=== PATIENT | male | born 1945 | race Asian ===

== ENCOUNTER 2017-12-16 14:44 | Inpatient (IN) | payer MEDICARE, MEDICAID ==
[~2017-12-16] VITALS: Ht 167.6 cm; Wt 91.2 kg
[2017-12-16] MEDS ORDERED: ASPIR 8181 MG ORAL (14:52)
[2017-12-16] MEDS ORDERED: KEPPRA1000 MG ORAL (14:52)
[2017-12-16] MEDS ORDERED: DULCOLAX10 MG RC (14:52)
[2017-12-16] MEDS ORDERED: COLACE100 MG ORAL (14:52)
[2017-12-16] MEDS ORDERED: BENADRYL25 M3 PO (14:52)
[2017-12-16] MEDS ORDERED: AMIODARONE HCL400 M1 ORAL (14:52)
[2017-12-16] MEDS ORDERED: LYRICA75 M1 ORAL (14:52)
[2017-12-16] MEDS ORDERED: LISINOPRIL5 MG ORAL (14:52)
[2017-12-16] MEDS ORDERED: METOPROLOL TART25 MG ORAL (14:52)
[2017-12-16] MEDS ORDERED: FISH OIL CAP1000 MG ORAL (14:52)
[2017-12-16 15:00] VITALS: BP 136/80
[2017-12-16] MEDS ORDERED: Albuterol ud Inhalation HHN ONE (15:00)
[2017-12-16] MEDS ORDERED: Ipratropium 0.02% Inh Soln 2.5ml UD HHN ONE (15:00)
[2017-12-16] MEDS ORDERED: Acetaminophen 500mg (ES) tab ORAL ONE (15:00)
--- NOTE | 2017-12-16 15:06 | Emergency Room Report ---
History of Present Illness General Chief Complaint: Upper Respiratory Illness Source: Patient Present Illness HPI 72-year-old male with a history of CAD status post CABG as well as CVA with left hemiplegia presents with abnormal chest x-ray, cough with whitish sputum production for the past week and sensation shortness of breath. Patient denies any pain complaints. Denies any fevers. He denies syncope, hemoptysis, n/v, diarrhea, or any other problems. Allergies: Coded Allergies: No Known Allergies (Unverified , 12/16/17) Patient History Past Medical History: see triage record Reviewed Nursing Documentation: PMH: Agreed; PSxH: Agreed Nursing Documentation-PMH Hx Hypertension: Yes - hyperlipidemia Hx Seizures: Yes Review of Systems All Other Systems: negative except mentioned in HPI Physical Exam Vital Signs Date Time Temp Pulse Resp B/P (MAP) Pulse Ox O2 Delivery O2 Flow Rate FiO2 12/16/17 14:41 99.8 68 20 136/80 93 Room Air 99.9 Sp02 EP Interpretation: reviewed, normal General Appearance: no apparent distress, alert, non-toxic Head: normocephalic Eyes: bilateral eye normal inspection, bilateral eye PERRL, bilateral eye EOMI ENT: normal ENT inspection, hearing grossly normal, normal pharynx, no angioedema, normal voice, moist mucus membranes Neck: normal inspection, full range of motion, supple, supple/symm/no masses Respiratory: chest non-tender, normal breath sounds, rhonchi, wheezing, expiration, chest symmetrical, palpation of chest normal Cardiovascular #1: normal peripheral pulses, regular rate, rhythm Cardiovascular #2: 2+ radial (R), 2+ radial (L) Gastrointestinal: normal inspection, non tender, soft, no mass, no guarding, no rebound Rectal: deferred Genitourinary: normal inspection, no CVA tenderness Musculoskeletal: back normal, non-tender, no calf tenderness Neurologic: alert, responsive, 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 III-XII nml as tested, motor strength/tone normal, sensory intact, speech normal, facial droop, motor weakness - Left upper extremity contracted, left-sided weakness and left facial droop Psychiatric: judgement/insight normal, memory normal, mood/affect normal, no suicidal/homicidal ideation Skin: normal color, no rash, warm/dry, normal turgor Lymphatic: no adenopathy Medical Decision Making Diagnostic Impression: Primary Impression: CAP (community acquired pneumonia) ER Course Patient sent for abnormal chest x-ray, signs and symptoms consistent with pneumonia, patient given breathing treatment, Tylenol, blood cultures, broad- spectrum antibiotics, admitted for pneumonia. EKG Diagnostic Results EKG Time: 15:10 EP Interpretation: no st-t changes, no TWI's Rate: normal Rhythm: NSR ST Segments: no acute changes ASA given to the pt in ED: No Rhythm Strip Diag. Results Rhythm Strip Time: 15:05 EP Interpretation: yes Rate: 59 Rhythm: NSR, no PVC's, no ectopy Chest X-Ray Diagnostic Results Chest X-Ray Diagnostic Results : Chest X-Ray Ordered: Yes # of Views/Limited/Complete: 1 View Indication: Other - cough EP Interpretation: Yes Interpretation: no pneumothorax, other - RML consolidation Impression: Other - RML pneumonia Electronically Signed by: Sheila Russo MD Last Vital Signs Date Time Temp Pulse Resp B/P (MAP) Pulse Ox O2 Delivery O2 Flow Rate FiO2 7/2/18 14:41 99.8 68 20 136/80 93 Room Air 99.9 Disposition: ADMITTED INPATIENT Signed Out To: Dr. Dover accepted patient for admission SHEILA RUSSO M.D Dec 16, 2017 15:06
[2017-12-16 16:03] VITALS: BP 133/87
[2017-12-16 16:03] LABS: BASOPHILS % (AUTO) 1.3 % (0.0-2.0); EOSINOPHILS % (AUTO) 1.3 % (0.0-3.0); HEMATOCRIT 47.3 % (42.0-52.0); LYMPHOCYTES % (AUTO) 30.7 % (20.0-45.0); MEAN CORPUSCULAR VOLUME 93 FL (80-99); MONOCYTES % (AUTO) 9.3 % (1.0-10.0); NEUTROPHILS % (AUTO) 57.4 % (45.0-75.0); PLATELET COUNT 188 K/UL (150-450); RED BLOOD COUNT 5.08 M/UL (4.70-6.10); RED CELL DISTRIBUTION WIDTH 11.8 % (11.6-14.8); WHITE BLOOD COUNT 8.1 K/UL (4.8-10.8)
[2017-12-16 16:18] LABS: ANION GAP 11 mmol/L (5-15); BLOOD UREA NITROGEN 18 mg/dL (7-18); CALCIUM 8.5 MG/DL (8.5-10.1); CARBON DIOXIDE 23 MMOL/L (21-32); CHLORIDE 103 MMOL/L (98-107); CREATININE 1.5 MG/DL (0.55-1.30); POTASSIUM 4.5 MMOL/L (3.5-5.1); SODIUM 137 MMOL/L (136-145)
--- NOTE | 2017-12-16 16:26 | Diagnostic Imaging Report ---
Indication: Cough Comparison: None A single view chest radiograph was obtained. Findings: Sternotomy is noted. No definite infiltrate or pulmonary vascular congestion identified. The heart is enlarged. The aorta is mildly enlarged consistent with atherosclerotic vascular disease. The bones are osteopenic. Impression: No acute disease
[2017-12-16 16:29] LABS: APPEARANCE,URINE CLEAR; BILIRUBIN, URINE NEGATIVE (NEGATIVE); GLUCOSE, URINE (UA) NEGATIVE (NEGATIVE); KETONES,URINE NEGATIVE (NEGATIVE); LEUKOCYTE ESTERASE ,URINE 3+ (NEGATIVE); NITRITE,URINE NEGATIVE (NEGATIVE); PH,URINE 5 (4.5-8.0); PROTEIN,URINE 2+ (NEGATIVE); UROBILINOGEN,URINE NORMAL MG/DL (0.0-1.0)
[2017-12-16 16:30] LABS: ALANINE AMINOTRANSFERASE 14 U/L (12-78); ALBUMIN 3.1 G/DL (3.4-5.0); ALBUMIN/GLOBULIN RATIO 0.7 (1.0-2.7); ALKALINE PHOSPHATASE 93 U/L (46-116); ASPARTATE AMINO TRANSFERASE 24 U/L (15-37); BILIRUBIN,TOTAL 0.6 MG/DL (0.2-1.0)
[2017-12-16 16:31] LABS: COLOR,URINE YELLOW
[2017-12-16 18:05] VITALS: BP 137/82
[2017-12-16 19:05] VITALS: BP 104/50
[2017-12-16 20:20] VITALS: BP 112/51
[2017-12-16] MEDS ORDERED: Albuterol/Ipratropium 3ml neb HHN PRN (21:30)
[2017-12-16] MEDS: Piperacillin/Tazobactam 3.375 GM in NS 110 ML IVPB SCH (22:49)
[2017-12-17] VITALS: BP 134/70
[2017-12-17] MEDS: Vancomycin 1500mg IVPB SCH ×2 (02:25→23:28)
[2017-12-17 04:00] VITALS: BP 134/70
[2017-12-17] MEDS: Piperacillin/Tazobactam 3.375 GM in NS 110 ML IVPB SCH ×3 (05:37→20:45)
[2017-12-17 08:00] VITALS: BP 129/62
--- NOTE | 2017-12-17 08:29 | History and Physical Report ---
DATE OF ADMISSION: 12/16/2017 CHIEF COMPLAINT: Sepsis, pneumonia, and UTI. HISTORY OF PRESENT ILLNESS: The patient is a pleasant 72-year-old male. He has a history of hypertension, stroke, paroxysmal atrial fibrillation, and seizure disorder. He was transferred from a long term facility with complaints of fevers and congestion. The patient was recently diagnosed with pneumonia. He has been on oral antibiotic therapy. He continued to have episodes of subjective fevers and chills, shortness of breath, and congestion. He was transferred to the emergency room. He was noted to have an elevated lactic acid level. He was pancultured. IV antibiotics were instituted and the patient is now admitted for further evaluation and care. PAST MEDICAL HISTORY: As above. PAST SURGICAL HISTORY: None. CURRENT MEDICATIONS: Reconciled and reviewed. ALLERGIES: None. FAMILY HISTORY: None. SOCIAL HISTORY: The patient is a prior smoker. No alcohol. No drugs. REVIEW OF SYSTEMS: GENERAL: Positive fevers and chills. No night sweats. HEENT: No headaches or visual changes. CARDIOPULMONARY: No chest pain or shortness of breath. GASTROINTESTINAL: No nausea or vomiting. GENITOURINARY: No urgency or frequency. MUSCULOSKELETAL: No joint pain or swelling. No evidence of seizures. PHYSICAL EXAMINATION: VITAL SIGNS: Temperature 100.8, pulse 63, respirations 20, and blood pressure 112/51. GENERAL: The patient is a well-developed male, in no apparent distress. He is awake and alert. HEENT: His pupils are equal, round and reactive to light. Sclerae anicteric. Oropharynx is clear. NECK: Supple. HEART: Regular rate and rhythm. LUNGS: Scattered rhonchi. ABDOMEN: Soft, nontender, and nondistended. EXTREMITIES: Without clubbing or cyanosis. The patient has hemiparesis noted. LABORATORY DATA: UA showed 15 to 20 wbc's. White count was 8. Lactic acid was 2.8. Creatinine was 1.5. ASSESSMENT: This is a pleasant male, admitted with complaints of sepsis secondary to urinary tract infection and pneumonia. 1. Sepsis. 2. Urinary tract infection. 3. Pneumonia. 4. Stroke. 5. Hypertension. 6. Diabetes. PLAN: 1. IV antibiotics. 2. Follow up cultures. 3. Consider gentle hydration. 4. Respiratory treatments. 5. Continue outpatient cardiac regimen. Tha Dover M.D. DR: SEPIDEH JOB#: [id number] CC:
[2017-12-17] MEDS: Lisinopril 2.5mg tab ORAL SCH ×2 (08:57→18:12)
[2017-12-17] MEDS: Docusate 100mg cap ORAL SCH (08:57)
[2017-12-17] MEDS: Amiodarone 200mg tab ORAL SCH (08:57)
[2017-12-17] MEDS: Aspirin EC 81mg tab ORAL SCH (08:57)
[2017-12-17] MEDS: Lyrica 50mg cap ORAL SCH ×3 (08:58→18:13)
[2017-12-17] MEDS: Metoprolol 25mg tab ORAL SCH ×3 (08:58→20:44)
--- NOTE | 2017-12-17 08:59 | Consultation ---
DATE OF CONSULTATION: 12/17/2017 PULMONARY CONSULTATION CONSULTING PHYSICIAN: Donald Stein M.D. REFERRING PHYSICIAN: Tha Dover M.D. REASON FOR CONSULTATION: Shortness of breath and respiratory insufficiency. HISTORY: This is a 72-year-old male with history of heart disease, and history of CVA with left-sided hemiplegia, presents with chronic and worsening sputum production and also shortness of breath and wheezing. The patient denies any chest trauma. Denies any recent ill contacts. The patient was seen in the emergency room and was noted to have a chest x-ray, which was negative. EKG without any acute changes. The patient, however, felt to possibly have an early right middle lobe infiltrate. The patient is now being admitted for acute bronchospasm, possible early pneumonia and I was called to evaluate and recommend further. The patient was started on antibiotics and started on respiratory therapy. The patient is a fair historian. Difficult to fully assess. The patient's care discussed and reviewed in detail. The patient with questionable history of asthma per review. PAST MEDICAL HISTORY: Notable for CAD, CABG, CVA with left-sided hemiplegia, hyperlipidemia, seizure disorder, and hypertension. MEDICATIONS: Reviewed. ALLERGIES: Reviewed. REVIEW OF SYSTEMS: Somewhat difficult to obtain. However, the patient denies all 10 points as outlined. PHYSICAL EXAMINATION: GENERAL: A well-developed male. Somewhat obese. VITAL SIGNS: Blood pressure 134/70, temperature 99.6, pulse 73, respirations 18, and sats 96% on room air. HEENT: Negative. Oropharynx is moist. NECK: Supple. EXTREMITIES: Grossly intact. NECK: Supple. No jugular venous distention. LUNGS: Scattered wheezes. Occasional rhonchi. Reduced air entry. CARDIAC: Normal S1, S2. Regular rate and rhythm. Soft systolic murmur at the parasternal border. ABDOMEN: Soft, obese, and nontender. EXTREMITIES: No cyanosis or clubbing. NEUROLOGIC: There is focal weakness and some contractures noted overall. SKIN: Noted and reviewed. LABORATORY DATA: Reviewed. White count 8.1, no left shift. Chemistries noted and reviewed. Lactic acid slightly elevated. BUN and creatinine are 18 and 1.5. Albumin is 3.1. Chest x-ray appears to be fairly negative although there is some haziness in the right middle lobe region. IMPRESSION: 1. Possible early pneumonia. 2. Evidence of bronchospasm, mild. 3. Hyperlipidemia. 4. Seizures. 5. Cerebrovascular accident. 6. No clear evidence of aspiration. 7. Coronary artery disease. 8. Coronary artery bypass grafting. RECOMMENDATIONS: Empiric antibiotics. Follow up x-ray and recommend further to assess for developing pneumonia. Follow up exam and monitor clinically for further changes. Continue with antibiotics as is, but consider converting to p.o. antibiotics. X-ray followup appears to be fairly negative in nature. Continue nebulized therapy and monitor for aspiration and monitor oxygen needs. monitor closely for further changes and interventions. Donald Stein M.D. DR: ROXANNA JOB#: [id number] CC: SCAR
[2017-12-17] MEDS: Heparin 5000 units/ml inj SUBQ SCH ×2 (09:01→20:51)
[2017-12-17 12:00] VITALS: BP 118/72
[2017-12-17 16:00] VITALS: BP 121/85
[2017-12-17 20:00] VITALS: BP 119/57
[2017-12-18] VITALS: BP 101/50
--- NOTE | 2017-12-18 00:36 | Cardiology Report ---
APPROVED REPORT EKG Measurement Heart [id number] Suspect arm lead reversal, interpretation assumes no reversal Sinus rhythm with 1st degree AV block Nonspecific intraventricular block Possible Anterolateral infarct, age undetermined Abnormal ECG
[2017-12-18 04:00] VITALS: BP 134/68
[2017-12-18] MEDS: Piperacillin/Tazobactam 3.375 GM in NS 110 ML IVPB SCH ×3 (05:48→22:00)
[2017-12-18 08:00] VITALS: BP 126/65
[2017-12-18] MEDS: Lisinopril 2.5mg tab ORAL SCH ×2 (08:26→17:34)
[2017-12-18] MEDS: Docusate 100mg cap ORAL SCH (08:26)
[2017-12-18] MEDS: Amiodarone 200mg tab ORAL SCH (08:27)
[2017-12-18] MEDS: Lyrica 50mg cap ORAL SCH ×3 (08:28→17:35)
[2017-12-18] MEDS: Aspirin EC 81mg tab ORAL SCH (08:29)
[2017-12-18] MEDS: Metoprolol 25mg tab ORAL SCH ×2 (08:29→20:51)
[2017-12-18] MEDS: Heparin 5000 units/ml inj SUBQ SCH ×2 (08:31→20:53)
--- NOTE | 2017-12-18 10:50 | Pulmonology Progress Note ---
Assessment/Plan Assessment/Plan IMPRESSION: 1. Possible early pneumonia. 2. Evidence of bronchospasm, mild. 3. Hyperlipidemia. 4. Seizures. 5. Cerebrovascular accident. 6. No clear evidence of aspiration. 7. Coronary artery disease. 8. Coronary artery bypass grafting PLAN respiratory care oxygen monitor for change follow up imaging impression, plan, and exam edited and reviewed in detail care discussed with RN Subjective Allergies: Coded Allergies: No Known Allergies (Unverified , 12/16/17) Subjective care noted and reviewed Objective Last 24 Hour Vital Signs Date Time Temp Pulse Resp B/P (MAP) Pulse Ox O2 Delivery O2 Flow Rate FiO2 12/18/17 08:29 72 126/65 12/18/17 08:26 126/65 12/18/17 08:00 99.3 72 20 126/65 94 Room Air 99.3 12/18/17 08:00 65 18 Room Air 12/18/17 08:00 70 12/18/17 04:00 69 12/18/17 04:00 98.8 72 26 134/68 96 Room Air 98.8 12/18/17 00:00 63 12/18/17 00:00 99.2 55 20 101/50 94 Room Air 99.2 12/17/17 20:44 67 119/57 12/17/17 20:29 68 18 Room Air 12/17/17 20:00 98.0 67 22 119/57 94 Room Air 98.0 12/17/17 20:00 65 12/17/17 18:12 121/85 12/17/17 16:00 61 12/17/17 16:00 98.4 74 18 121/85 96 Room Air 98.4 12/17/17 12:00 99.1 69 18 118/72 95 Room Air 99.1 12/17/17 12:00 59 Intake and Output 12/17/17 12/18/17 19:00 07:00 Intake Total 732.5 ml 360.0 ml Balance 732.5 ml 360.0 ml IV Total 82.5 ml 360.0 ml Other 650 ml # Voids 3 3 Objective GENERAL: A well-developed male. Somewhat obese. HEENT: Negative. Oropharynx is moist. NECK: Supple. EXTREMITIES: Grossly intact. NECK: Supple. No jugular venous distention. LUNGS: minimal wheezes. no rhonchi. Reduced air entry. CARDIAC: Normal S1, S2. Regular rate and rhythm. Soft systolic murmur at the parasternal border. ABDOMEN: Soft, obese, and nontender. EXTREMITIES: No cyanosis or clubbing. NEUROLOGIC: There is focal weakness and some contractures noted overall. SKIN: Noted and reviewed. . Microbiology Date/Time Source Procedure Growth Status 12/16/17 15:40 Blood Blood Culture - Preliminary NO GROWTH AFTER 24 HOURS Resulted 12/16/17 15:20 Blood Blood Culture - Preliminary NO GROWTH AFTER 24 HOURS Resulted 12/16/17 16:00 Nasal Nares MRSA Culture - Final NO METHICILLIN RESISTANT STAPH AUREUS... Complete 12/16/17 16:00 Urine,Clean Catch Urine Culture - Preliminary Mixed Gram Positive Organism Resulted 12/16/17 16:00 Rectum VRE Culture - Final NO VANCOMYCIN RESISTANT ENTEROCOCCUS ... Complete Current Medications Medications (Trade) Dose Ordered Sig/Dick Route PRN Reason Start Time Stop Time Status Last Admin Dose Admin Acetaminophen (Tylenol) 650 mg Q4H PRN ORAL Mild Pain/Temp > 100.5 12/16/17 23:15 01/15/18 23:14 12/17/17 08:58 Albuterol/ Ipratropium (Albuterol/ Ipratropium) 3 ml Q4H PRN HHN Shortness of Breath 12/16/17 21:30 12/21/17 21:29 Amiodarone HCl (Cordarone) 200 mg DAILY ORAL 12/17/17 09:00 01/16/18 08:59 12/18/17 08:27 Aspirin (Ecotrin) 81 mg DAILY ORAL 12/17/17 09:00 01/16/18 08:59 12/18/17 08:29 Atorvastatin Calcium (Lipitor) 10 mg BEDTIME ORAL 12/17/17 21:00 01/16/18 20:59 12/17/17 20:44 Bisacodyl (Dulcolax) 10 mg Q24HRS PRN RECTAL Constipation 12/16/17 23:15 01/15/18 21:59 Diphenhydramine HCl (Benadryl) 25 mg Q24HRS PRN ORAL itching 12/16/17 23:15 01/15/18 21:59 Docusate Sodium (Colace) 100 mg DAILY ORAL 12/17/17 09:00 01/16/18 08:59 12/18/17 08:26 Fish Oil (Fish Oil) 1,000 mg DAILY ORAL 12/17/17 09:00 01/16/18 08:59 12/18/17 08:27 Heparin Sodium (Porcine) (Heparin 5000 units/ml) 5,000 units EVERY 12 HOURS SUBQ 12/17/17 09:00 01/16/18 08:59 12/18/17 08:31 Levetiracetam (Keppra) 1,000 mg BID ORAL 12/17/17 09:00 01/16/18 08:59 12/18/17 08:27 Lisinopril (Zestril) 2.5 mg BID ORAL 12/17/17 09:00 01/16/18 08:59 12/18/17 08:26 Metoprolol Tartrate (Lopressor) 25 mg EVERY 12 HOURS ORAL 12/17/17 09:00 01/16/18 08:59 12/18/17 08:29 Piperacillin Sod/ Tazobactam Sod 3.375 gm/Sodium Chloride 110 ml @ 27.5 mls/hr EVERY 8 HOURS IVPB 12/16/17 22:30 12/21/17 22:29 12/18/17 05:48 Pregabalin (Lyrica) 50 mg THREE TIMES A DAY ORAL 12/17/17 09:00 01/16/18 08:59 12/18/17 08:28 Vancomycin HCl (Vanco rx to dose) 1 ea DAILY PRN MISC Per rx protocol 12/16/17 21:30 01/15/18 21:29 Vancomycin HCl/ Dextrose 250 ml @ 125 mls/hr Q24H IVPB 12/16/17 23:00 12/21/17 22:59 12/17/17 23:28 Donald Stein MD Dec 18, 2017 10:49
--- NOTE | 2017-12-18 11:36 | General Progress Note ---
Assessment/Plan Problem List: (1) UTI (urinary tract infection) ICD Codes: N39.0 - Urinary tract infection, site not specified SNOMED: 61641425 (2) Sepsis ICD Codes: A41.9 - Sepsis, unspecified organism SNOMED: 24247073 (3) Toxic metabolic encephalopathy ICD Codes: G92 - Toxic encephalopathy SNOMED: 408492734 (4) CAP (community acquired pneumonia) ICD Codes: J18.9 - Pneumonia, unspecified organism SNOMED: 428610804 Status: stable, progressing Assessment/Plan resp care iv abx follow up cultures swallow eval sz rx antiplt rx Subjective ROS Limited/Unobtainable: No Constitutional: Reports: malaise, weakness HEENT: Reports: no symptoms Cardiovascular: Reports: no symptoms Respiratory: Reports: cough, shortness of breath Gastrointestinal/Abdominal: Reports: no symptoms Genitourinary: Reports: no symptoms Neurologic/Psychiatric: Reports: pre-existing deficit, seizure Endocrine: Reports: no symptoms Hematologic/Lymphatic: Reports: no symptoms Allergies: Coded Allergies: No Known Allergies (Unverified , 12/16/17) All Systems: reviewed and negative except above Subjective no events. w/o complaints. mild cough and congestion. cxr negative- +infiltrate on cxr done at the snf. Objective Last 24 Hour Vital Signs Date Time Temp Pulse Resp B/P (MAP) Pulse Ox O2 Delivery O2 Flow Rate FiO2 12/18/17 08:29 72 126/65 12/18/17 08:26 126/65 12/18/17 08:00 99.3 72 20 126/65 94 Room Air 99.3 12/18/17 08:00 65 18 Room Air 12/18/17 08:00 70 12/18/17 04:00 69 12/18/17 04:00 98.8 72 26 134/68 96 Room Air 98.8 12/18/17 00:00 63 12/18/17 00:00 99.2 55 20 101/50 94 Room Air 99.2 12/17/17 20:44 67 119/57 12/17/17 20:29 68 18 Room Air 12/17/17 20:00 98.0 67 22 119/57 94 Room Air 98.0 12/17/17 20:00 65 12/17/17 18:12 121/85 7/3/18 16:00 61 12/17/17 16:00 98.4 74 18 121/85 96 Room Air 98.4 12/17/17 12:00 99.1 69 18 118/72 95 Room Air 99.1 12/17/17 12:00 59 Intake and Output 12/17/17 12/18/17 19:00 07:00 Intake Total 732.5 ml 360.0 ml Balance 732.5 ml 360.0 ml IV Total 82.5 ml 360.0 ml Other 650 ml # Voids 3 3 Height (Feet): 5 Height (Inches): 6.00 Weight (Pounds): 201 General Appearance: WD/WN, alert, confused Neck: supple Cardiovascular: normal rate, regular rhythm Respiratory/Chest: chest wall non-tender, no respiratory distress, no accessory muscle use, rhonchi - bilaterally Abdomen: normal bowel sounds, non tender, soft, no organomegaly, no mass Edema: no edema noted Arm (L), no edema noted Arm (R), no edema noted Leg (L), no edema noted Leg (R), no edema noted Pedal (L), no edema noted Pedal (R), no edema noted Generalized Neurologic: motor weakness Tha Dover MD Dec 18, 2017 11:36
[2017-12-18 12:00] VITALS: BP 126/64
[2017-12-18 16:00] VITALS: BP 124/60
--- NOTE | 2017-12-18 16:30 | Consultation ---
DATE OF CONSULTATION: 12/18/2017 INFECTIOUS DISEASES CONSULTATION CONSULTING PHYSICIAN: Hayde Rosen M.D. REFERRING PHYSICIAN: Tha Dover M.D. REASON FOR CONSULTATION: Urinary tract infection and pneumonia. HISTORY OF PRESENT ILLNESS: This is a 72-year-old gentleman with history of hypertension, stroke, atrial fibrillation, seizure disorder who was transferred from a intermediate facility with fever, cough, and congestion. He was found to have a pneumonia and an Infectious Diseases consultation has been obtained for antibiotics. PAST MEDICAL HISTORY: 1. History of hypertension. 2. Stroke. 3. Atrial fibrillation. 4. Seizure disorder. MEDICATIONS: As an inpatient, the patient is on atorvastatin, amiodarone, aspirin, Colace, fish oil, Keppra, lisinopril, metoprolol, pregabalin, subcutaneous heparin, bisacodyl, Benadryl, Tylenol, IV vancomycin, Zosyn, albuterol ipratropium. ALLERGIES: No known drug allergies. SOCIAL HISTORY: He was a smoker before. He does not smoke anymore. He used to drink alcohol before. He does not drink anymore. No history of drug use. FAMILY HISTORY: Noncontributory. REVIEW OF SYSTEMS: RESPIRATORY: He had fever and chills. He has cough. No shortness of breath or chest pain. CARDIAC: No chest pain. No palpitations. No dizziness. No syncope. GASTROINTESTINAL: No nausea. No vomiting. No abdominal pain or diarrhea. PHYSICAL EXAMINATION: VITAL SIGNS: Temperature of 99.3, T-max of 100.8, pulse of 72, respiratory rate of 18, blood pressure 126/65, O2 saturation 94% HEENT: Pupils equally reactive to light and accommodation. Mouth appears clean without thrush. NECK: Supple. No adenopathy. No JVD. CARDIOVASCULAR: Regular rate and rhythm. No murmurs. LUNGS: Wheezing noted. ABDOMEN: Soft and nontender. No organomegaly. EXTREMITIES: No cyanosis, no clubbing, no edema. LABORATORY AND DIAGNOSTIC DATA: White count 8.1, hemoglobin 16, hematocrit 47.3, MCV 93, platelet count of 188, neutrophils of 57%. Sodium 137, potassium 4.5, chloride 103, bicarb 23, BUN 18, creatinine 1.5, glucose 165, calcium 8.5. Total bilirubin 0.6, AST 24, ALT 14, and alkaline phosphatase 93. Beta natriuretic peptide 2725. Total protein 7.4 and albumin 3.1. UA showing 15 to 20 white cells. Urine culture showing mixed gram-positive organism. Rectal swab was negative for VRE. Nasal swab was negative for MRSA. Blood cultures are negative. Chest x-ray is showing no acute disease. ASSESSMENT: This is a 72-year-old gentleman with history of hypertension, stroke, atrial fibrillation who comes in with. 1. Urinary tract infection. 2. Seizure disorder. 3. Hypertension. PLAN: 1. Continue vancomycin and Zosyn for now. 2. We will follow up cultures and adjust antibiotics accordingly. I would like to thank, Dr. Dover, for this consultation. Hayde Rosen M.D. DR: Deborah JOB#: [id number] CC: Tha Dover M.D.
[2017-12-18 20:00] VITALS: BP 104/55
[2017-12-18] MEDS: Vancomycin 1500mg IVPB SCH (23:00)
[2017-12-19] VITALS: BP 99/45
[2017-12-19 04:00] VITALS: BP 108/54
[2017-12-19] MEDS: Piperacillin/Tazobactam 3.375 GM in NS 110 ML IVPB SCH ×3 (06:00→22:06)
[2017-12-19 06:23] LABS: EOSINOPHILS % (AUTO) 9.8 % (0.0-3.0); HEMATOCRIT 42.7 % (42.0-52.0); HEMOGLOBIN 14.6 G/DL (14.2-18.0); LYMPHOCYTES % (AUTO) 28.6 % (20.0-45.0); MEAN CORPUSCULAR VOLUME 94 FL (80-99); MONOCYTES % (AUTO) 8.3 % (1.0-10.0); NEUTROPHILS % (AUTO) 52.4 % (45.0-75.0); PLATELET COUNT 170 K/UL (150-450); RED BLOOD COUNT 4.55 M/UL (4.70-6.10); WHITE BLOOD COUNT 6.5 K/UL (4.8-10.8)
[2017-12-19 06:56] LABS: ALANINE AMINOTRANSFERASE 13 U/L (12-78); ALBUMIN 2.7 G/DL (3.4-5.0); ALBUMIN/GLOBULIN RATIO 0.7 (1.0-2.7); ALKALINE PHOSPHATASE 63 U/L (46-116); ANION GAP 6 mmol/L (5-15); ASPARTATE AMINO TRANSFERASE 16 U/L (15-37); BILIRUBIN,TOTAL 0.8 MG/DL (0.2-1.0); BLOOD UREA NITROGEN 21 mg/dL (7-18); CALCIUM 8.1 MG/DL (8.5-10.1); CARBON DIOXIDE 28 MMOL/L (21-32); CHLORIDE 108 MMOL/L (98-107); CREATININE 1.8 MG/DL (0.55-1.30); POTASSIUM 4.6 MMOL/L (3.5-5.1); SODIUM 142 MMOL/L (136-145)
[2017-12-19 08:00] VITALS: BP 143/73
--- NOTE | 2017-12-19 08:20 | Pulmonology Progress Note ---
Assessment/Plan Assessment/Plan IMPRESSION: 1. Possible early pneumonia. 2. Evidence of bronchospasm, mild. 3. Hyperlipidemia. 4. Seizures. 5. Cerebrovascular accident. 6. No clear evidence of aspiration. 7. Coronary artery disease. 8. Coronary artery bypass grafting PLAN respiratory care as is oxygen noted monitor for change follow up imaging for change impression, plan, and exam edited and reviewed in detail care discussed with RN Subjective Allergies: Coded Allergies: No Known Allergies (Unverified , 12/16/17) Subjective care noted and reviewed more alert Objective Last 24 Hour Vital Signs Date Time Temp Pulse Resp B/P (MAP) Pulse Ox O2 Delivery O2 Flow Rate FiO2 12/19/17 04:12 56 12/19/17 04:00 98.2 56 19 108/54 95 Room Air 98.2 12/19/17 00:00 97.7 50 20 99/45 95 Room Air 97.7 12/18/17 20:51 61 104/55 12/18/17 20:00 62 18 Room Air 21 12/18/17 20:00 97.7 61 18 104/55 95 Room Air 97.7 12/18/17 20:00 58 12/18/17 18:34 98.2 12/18/17 17:35 100.5 12/18/17 17:34 126/64 12/18/17 16:00 99.1 58 20 124/60 95 Room Air 99.1 12/18/17 16:00 58 12/18/17 12:00 98.6 60 20 126/64 96 Room Air 98.6 12/18/17 12:00 70 12/18/17 08:29 72 126/65 12/18/17 08:26 126/65 Intake and Output 12/18/17 12/19/17 19:00 07:00 Intake Total 840.0 ml 387.5 ml Output Total 650 ml 300 ml Balance 190.0 ml 87.5 ml Intake Oral 730 ml IV Total 110.0 ml 387.5 ml Output Urine Total 650 ml 300 ml # Voids 1 # Bowel Movements 3 1 Objective GENERAL: A well-developed male. Somewhat obese. HEENT: Negative. Oropharynx is moist. NECK: Supple. EXTREMITIES: Grossly intact. NECK: Supple. No jugular venous distention. LUNGS: no wheezes. no rhonchi. Reduced air entry. CARDIAC: Normal S1, S2. Regular rate and rhythm. Soft systolic murmur at the parasternal border. ABDOMEN: Soft, obese, and nontender. EXTREMITIES: No cyanosis or clubbing. NEUROLOGIC: There is focal weakness and some contractures noted overall. SKIN: Noted and reviewed. . Microbiology Date/Time Source Procedure Growth Status 12/16/17 15:40 Blood Blood Culture - Preliminary NO GROWTH AFTER 48 HOURS Resulted 12/16/17 15:20 Blood Blood Culture - Preliminary NO GROWTH AFTER 48 HOURS Resulted 12/16/17 16:00 Nasal Nares MRSA Culture - Final NO METHICILLIN RESISTANT STAPH AUREUS... Complete 12/16/17 16:00 Urine,Clean Catch Urine Culture - Preliminary Mixed Gram Positive Organism Resulted 12/16/17 16:00 Rectum VRE Culture - Final NO VANCOMYCIN RESISTANT ENTEROCOCCUS ... Complete Laboratory Tests 12/18/17 21:50: Vancomycin Level Trough 13.1H 12/19/17 05:45: White Blood Count 6.5, Red Blood Count 4.55L, Hemoglobin 14.6, Hematocrit 42.7, Mean Corpuscular Volume 94, Mean Corpuscular Hemoglobin 32.1H, Mean Corpuscular Hemoglobin Concent 34.1, Red Cell Distribution Width 12.0, Platelet Count 170, Mean Platelet Volume 6.3L, Neutrophils (%) (Auto) 52.4, Lymphocytes (%) (Auto) 28.6, Monocytes (%) (Auto) 8.3, Eosinophils (%) (Auto) 9.8H, Basophils (%) (Auto ) 1.0, Sodium Level 142, Potassium Level 4.6, Chloride Level 108H, Carbon Dioxide Level 28, Anion Gap 6, Blood Urea Nitrogen 21H, Creatinine 1.8H, Estimat Glomerular Filtration Rate , Glucose Level 101, Calcium Level 8.1L, Magnesium Level 2.5H, Total Bilirubin 0.8, Aspartate Amino Transf (AST/SGOT) 16 , Alanine Aminotransferase (ALT/SGPT) 13, Alkaline Phosphatase 63, Pro-B-Type Natriuretic Peptide 1139H, Total Protein 6.6, Albumin 2.7L, Globulin 3.9, Albumin/Globulin Ratio 0.7L Current Medications Medications (Trade) Dose Ordered Sig/Dick Route PRN Reason Start Time Stop Time Status Last Admin Dose Admin Acetaminophen (Tylenol) 650 mg Q4H PRN ORAL Mild Pain/Temp > 100.5 12/16/17 23:15 8/1/18 23:14 12/18/17 17:35 Albuterol/ Ipratropium (Albuterol/ Ipratropium) 3 ml Q4H PRN HHN Shortness of Breath 12/16/17 21:30 12/21/17 21:29 Amiodarone HCl (Cordarone) 200 mg DAILY ORAL 12/17/17 09:00 01/16/18 08:59 12/18/17 08:27 Aspirin (Ecotrin) 81 mg DAILY ORAL 12/17/17 09:00 01/16/18 08:59 12/18/17 08:29 Atorvastatin Calcium (Lipitor) 10 mg BEDTIME ORAL 12/17/17 21:00 01/16/18 20:59 12/18/17 20:52 Bisacodyl (Dulcolax) 10 mg Q24HRS PRN RECTAL Constipation 12/16/17 23:15 01/15/18 21:59 Diphenhydramine HCl (Benadryl) 25 mg Q24HRS PRN ORAL itching 12/16/17 23:15 01/15/18 21:59 Docusate Sodium (Colace) 100 mg DAILY ORAL 12/17/17 09:00 01/16/18 08:59 12/18/17 08:26 Fish Oil (Fish Oil) 1,000 mg DAILY ORAL 12/17/17 09:00 01/16/18 08:59 12/18/17 08:27 Heparin Sodium (Porcine) (Heparin 5000 units/ml) 5,000 units EVERY 12 HOURS SUBQ 12/17/17 09:00 01/16/18 08:59 12/18/17 20:53 Levetiracetam (Keppra) 1,000 mg BID ORAL 12/17/17 09:00 01/16/18 08:59 12/18/17 17:34 Lisinopril (Zestril) 2.5 mg BID ORAL 12/17/17 09:00 01/16/18 08:59 12/18/17 17:34 Metoprolol Tartrate (Lopressor) 25 mg EVERY 12 HOURS ORAL 12/17/17 09:00 01/16/18 08:59 12/18/17 08:29 Piperacillin Sod/ Tazobactam Sod 3.375 gm/Sodium Chloride 110 ml @ 27.5 mls/hr EVERY 8 HOURS IVPB 12/16/17 22:30 12/21/17 22:29 12/19/17 06:00 Pregabalin (Lyrica) 50 mg THREE TIMES A DAY ORAL 12/17/17 09:00 01/16/18 08:59 12/18/17 17:35 Vancomycin HCl (Vanco rx to dose) 1 ea DAILY PRN MISC Per rx protocol 12/16/17 21:30 01/15/18 21:29 Vancomycin HCl/ Dextrose 250 ml @ 125 mls/hr Q24H IVPB 12/16/17 23:00 12/21/17 22:59 12/18/17 23:00 Donald Stein MD Dec 19, 2017 08:20
[2017-12-19] MEDS: Aspirin EC 81mg tab ORAL SCH (08:39)
[2017-12-19] MEDS: Amiodarone 200mg tab ORAL SCH (08:39)
[2017-12-19] MEDS: Docusate 100mg cap ORAL SCH (08:39)
[2017-12-19] MEDS: Lisinopril 2.5mg tab ORAL SCH (08:40)
[2017-12-19] MEDS: Metoprolol 25mg tab ORAL SCH ×2 (08:41→21:10)
[2017-12-19] MEDS: Lyrica 50mg cap ORAL SCH ×3 (08:41→18:54)
[2017-12-19] MEDS: Heparin 5000 units/ml inj SUBQ SCH ×2 (08:46→21:11)
--- NOTE | 2017-12-19 09:12 | General Progress Note ---
Assessment/Plan Problem List: (1) UTI (urinary tract infection) ICD Codes: N39.0 - Urinary tract infection, site not specified SNOMED: 57801272 (2) Sepsis ICD Codes: A41.9 - Sepsis, unspecified organism SNOMED: 63452982 (3) Toxic metabolic encephalopathy ICD Codes: G92 - Toxic encephalopathy SNOMED: 105873854 (4) CAP (community acquired pneumonia) ICD Codes: J18.9 - Pneumonia, unspecified organism SNOMED: 024428298 Status: stable Assessment/Plan resp care iv abx follow up cultures dc acei repeat renal fxn sz rx antiplt rx Subjective ROS Limited/Unobtainable: No Constitutional: Reports: malaise, weakness HEENT: Reports: no symptoms Cardiovascular: Reports: no symptoms Respiratory: Reports: no symptoms Gastrointestinal/Abdominal: Reports: no symptoms Genitourinary: Reports: no symptoms Neurologic/Psychiatric: Reports: pre-existing deficit Endocrine: Reports: no symptoms Hematologic/Lymphatic: Reports: anemia Allergies: Coded Allergies: No Known Allergies (Unverified , 12/16/17) All Systems: reviewed and negative except above Subjective no events. w/o complaints. mild cough and congestion. no cp/sob. renal fxn worse ? Objective Last 24 Hour Vital Signs Date Time Temp Pulse Resp B/P (MAP) Pulse Ox O2 Delivery O2 Flow Rate FiO2 12/19/17 08:41 58 143/73 12/19/17 08:40 143/73 12/19/17 04:12 56 12/19/17 04:00 98.2 56 19 108/54 95 Room Air 98.2 12/19/17 00:00 97.7 50 20 99/45 95 Room Air 97.7 12/18/17 20:51 61 104/55 12/18/17 20:00 62 18 Room Air 21 12/18/17 20:00 97.7 61 18 104/55 95 Room Air 97.7 12/18/17 20:00 58 12/18/17 18:34 98.2 12/18/17 17:35 100.5 12/18/17 17:34 126/64 12/18/17 16:00 99.1 58 20 124/60 95 Room Air 99.1 12/18/17 16:00 58 12/18/17 12:00 98.6 60 20 126/64 96 Room Air 98.6 12/18/17 12:00 70 Intake and Output 12/18/17 12/19/17 19:00 07:00 Intake Total 840.0 ml 387.5 ml Output Total 650 ml 300 ml Balance 190.0 ml 87.5 ml Intake Oral 730 ml IV Total 110.0 ml 387.5 ml Output Urine Total 650 ml 300 ml # Voids 1 # Bowel Movements 3 1 Laboratory Tests 12/18/17 21:50: Vancomycin Level Trough 13.1H 12/19/17 05:45: White Blood Count 6.5, Red Blood Count 4.55L, Hemoglobin 14.6, Hematocrit 42.7, Mean Corpuscular Volume 94, Mean Corpuscular Hemoglobin 32.1H, Mean Corpuscular Hemoglobin Concent 34.1, Red Cell Distribution Width 12.0, Platelet Count 170, Mean Platelet Volume 6.3L, Neutrophils (%) (Auto) 52.4, Lymphocytes (%) (Auto) 28.6, Monocytes (%) (Auto) 8.3, Eosinophils (%) (Auto) 9.8H, Basophils (%) (Auto ) 1.0, Sodium Level 142, Potassium Level 4.6, Chloride Level 108H, Carbon Dioxide Level 28, Anion Gap 6, Blood Urea Nitrogen 21H, Creatinine 1.8H, Estimat Glomerular Filtration Rate , Glucose Level 101, Calcium Level 8.1L, Magnesium Level 2.5H, Total Bilirubin 0.8, Aspartate Amino Transf (AST/SGOT) 16 , Alanine Aminotransferase (ALT/SGPT) 13, Alkaline Phosphatase 63, Pro-B-Type Natriuretic Peptide 1139H, Total Protein 6.6, Albumin 2.7L, Globulin 3.9, Albumin/Globulin Ratio 0.7L Height (Feet): 5 Height (Inches): 6.00 Weight (Pounds): 201 General Appearance: WD/WN, alert Neck: supple Cardiovascular: regular rhythm Respiratory/Chest: lungs clear, normal breath sounds Abdomen: normal bowel sounds, non tender, soft, no organomegaly Edema: no edema noted Arm (L), no edema noted Arm (R), no edema noted Leg (L), no edema noted Leg (R), no edema noted Pedal (L), no edema noted Pedal (R), no edema noted Generalized Neurologic: motor weakness Tha Dover MD Dec 19, 2017 09:12
--- NOTE | 2017-12-19 10:52 | Infectious Diseases Prog Note ---
Assessment/Plan Assessment/Plan A; Sepsis UTI Bronchospasm Acute renal failure CAD HPN Seizure disorder P; Continue Zosyn Discontinue Vancomycin Subjective ROS Limited/Unobtainable: No Constitutional: Reports: no symptoms Respiratory: Reports: no symptoms Cardiovascular: Reports: no symptoms Gastrointestinal/Abdominal: Reports: no symptoms Genitourinary: Reports: no symptoms Neurologic: Reports: weakness, other - in left side of brittany, old stroke Allergies: Coded Allergies: No Known Allergies (Unverified , 12/16/17) Objective Vital Signs Last 24 Hour Vital Signs Date Time Temp Pulse Resp B/P (MAP) Pulse Ox O2 Delivery O2 Flow Rate FiO2 12/19/17 09:22 64 20 Room Air 21 12/19/17 08:41 58 143/73 12/19/17 08:40 143/73 12/19/17 08:00 97.0 58 20 143/73 96 Room Air 97.0 12/19/17 07:34 64 12/19/17 04:12 56 12/19/17 04:00 98.2 56 19 108/54 95 Room Air 98.2 12/19/17 00:00 97.7 50 20 99/45 95 Room Air 97.7 12/18/17 20:51 61 104/55 12/18/17 20:00 62 18 Room Air 21 12/18/17 20:00 97.7 61 18 104/55 95 Room Air 97.7 12/18/17 20:00 58 12/18/17 18:34 98.2 12/18/17 17:35 100.5 12/18/17 17:34 126/64 12/18/17 16:00 99.1 58 20 124/60 95 Room Air 99.1 12/18/17 16:00 58 12/18/17 12:00 98.6 60 20 126/64 96 Room Air 98.6 12/18/17 12:00 70 Height (Feet): 5 Height (Inches): 6.00 Weight (Pounds): 201 General Appearance: no acute distress Respiratory/Chest: expiratory wheezing Cardiovascular: normal rate, other - scar of thoracotomy Abdomen: soft, non tender Extremities: no edema Neurologic/Psychiatric: alert, oriented x 3, responsive, other - left side weakness Microbiology Date/Time Source Procedure Growth Status 12/16/17 15:40 Blood Blood Culture - Preliminary NO GROWTH AFTER 48 HOURS Resulted 7/2/18 15:20 Blood Blood Culture - Preliminary NO GROWTH AFTER 48 HOURS Resulted 12/16/17 16:00 Nasal Nares MRSA Culture - Final NO METHICILLIN RESISTANT STAPH AUREUS... Complete 12/16/17 16:00 Urine,Clean Catch Urine Culture - Preliminary Mixed Gram Positive Organism Resulted 12/16/17 16:00 Rectum VRE Culture - Final NO VANCOMYCIN RESISTANT ENTEROCOCCUS ... Complete Laboratory Tests Test 12/18/17 21:50 12/19/17 05:45 Vancomycin Level Trough 13.1 ug/mL (5.0-12.0) H White Blood Count 6.5 K/UL (4.8-10.8) Red Blood Count 4.55 M/UL (4.70-6.10) L Hemoglobin 14.6 G/DL (14.2-18.0) Hematocrit 42.7 % (42.0-52.0) Mean Corpuscular Volume 94 FL (80-99) Mean Corpuscular Hemoglobin 32.1 PG (27.0-31.0) H Mean Corpuscular Hemoglobin Concent 34.1 G/DL (32.0-36.0) Red Cell Distribution Width 12.0 % (11.6-14.8) Platelet Count 170 K/UL (150-450) Mean Platelet Volume 6.3 FL (6.5-10.1) L Neutrophils (%) (Auto) 52.4 % (45.0-75.0) Lymphocytes (%) (Auto) 28.6 % (20.0-45.0) Monocytes (%) (Auto) 8.3 % (1.0-10.0) Eosinophils (%) (Auto) 9.8 % (0.0-3.0) H Basophils (%) (Auto) 1.0 % (0.0-2.0) Sodium Level 142 MMOL/L (136-145) Potassium Level 4.6 MMOL/L (3.5-5.1) Chloride Level 108 MMOL/L (98-107) H Carbon Dioxide Level 28 MMOL/L (21-32) Anion Gap 6 mmol/L (5-15) Blood Urea Nitrogen 21 mg/dL (7-18) H Creatinine 1.8 MG/DL (0.55-1.30) H Estimat Glomerular Filtration Rate mL/min (>60) Glucose Level 101 MG/DL (74-106) Calcium Level 8.1 MG/DL (8.5-10.1) L Magnesium Level 2.5 MG/DL (1.8-2.4) H Total Bilirubin 0.8 MG/DL (0.2-1.0) Aspartate Amino Transf (AST/SGOT) 16 U/L (15-37) Alanine Aminotransferase (ALT/SGPT) 13 U/L (12-78) Alkaline Phosphatase 63 U/L (46-116) Pro-B-Type Natriuretic Peptide 1139 pg/mL (0-125) H Total Protein 6.6 G/DL (6.4-8.2) Albumin 2.7 G/DL (3.4-5.0) L Globulin 3.9 g/dL Albumin/Globulin Ratio 0.7 (1.0-2.7) L Current Medications Medications (Trade) Dose Ordered Sig/Dick Route PRN Reason Start Time Stop Time Status Last Admin Dose Admin Acetaminophen (Tylenol) 650 mg Q4H PRN ORAL Mild Pain/Temp > 100.5 12/16/17 23:15 01/15/18 23:14 12/18/17 17:35 Albuterol/ Ipratropium (Albuterol/ Ipratropium) 3 ml Q4H PRN HHN Shortness of Breath 12/16/17 21:30 12/21/17 21:29 Amiodarone HCl (Cordarone) 200 mg DAILY ORAL 12/17/17 09:00 01/16/18 08:59 12/19/17 08:39 Aspirin (Ecotrin) 81 mg DAILY ORAL 12/17/17 09:00 01/16/18 08:59 12/19/17 08:39 Atorvastatin Calcium (Lipitor) 10 mg BEDTIME ORAL 12/17/17 21:00 01/16/18 20:59 12/18/17 20:52 Bisacodyl (Dulcolax) 10 mg Q24HRS PRN RECTAL Constipation 12/16/17 23:15 01/15/18 21:59 Diphenhydramine HCl (Benadryl) 25 mg Q24HRS PRN ORAL itching 12/16/17 23:15 01/15/18 21:59 Docusate Sodium (Colace) 100 mg DAILY ORAL 12/17/17 09:00 01/16/18 08:59 12/19/17 08:39 Fish Oil (Fish Oil) 1,000 mg DAILY ORAL 12/17/17 09:00 01/16/18 08:59 12/19/17 08:39 Heparin Sodium (Porcine) (Heparin 5000 units/ml) 5,000 units EVERY 12 HOURS SUBQ 12/17/17 09:00 01/16/18 08:59 12/19/17 08:46 Levetiracetam (Keppra) 1,000 mg BID ORAL 12/17/17 09:00 01/16/18 08:59 12/19/17 08:39 Metoprolol Tartrate (Lopressor) 25 mg EVERY 12 HOURS ORAL 12/17/17 09:00 01/16/18 08:59 12/19/17 08:41 Piperacillin Sod/ Tazobactam Sod 3.375 gm/Sodium Chloride 110 ml @ 27.5 mls/hr EVERY 8 HOURS IVPB 12/16/17 22:30 12/21/17 22:29 12/19/17 06:00 Pregabalin (Lyrica) 50 mg THREE TIMES A DAY ORAL 12/17/17 09:00 01/16/18 08:59 12/19/17 08:41 Vancomycin HCl (Vanco rx to dose) 1 ea DAILY PRN MISC Per rx protocol 12/16/17 21:30 01/15/18 21:29 Vancomycin HCl/ Dextrose 250 ml @ 125 mls/hr Q24H IVPB 12/16/17 23:00 12/21/17 22:59 12/18/17 23:00 Rich Haskins MD Dec 19, 2017 10:52
[2017-12-19 12:00] VITALS: BP 116/66
--- NOTE | 2017-12-19 13:11 | Diagnostic Imaging Report ---
Indication: Shortness of breath Technique: XRAY Chest 1v Comparison: 12/16/2017 FINDINGS/IMPRESSION: No Significant interval change compared to exam of 12/16/2017. Patient again noted to be status post median sternotomy. Heart size and mediastinal contours are stable, including mild cardiomegaly. No definite focal airspace consolidation. Atherosclerotic changes noted in the aortic arch. This corresponds with the [facility] preliminary report.
[2017-12-19 16:00] VITALS: BP 112/64
[2017-12-19 20:00] VITALS: BP 118/62
[2017-12-20] VITALS: BP 112/90
[2017-12-20 04:00] VITALS: BP 135/69
[2017-12-20] MEDS: Piperacillin/Tazobactam 3.375 GM in NS 110 ML IVPB SCH (05:30)
[2017-12-20 07:06] LABS: ALANINE AMINOTRANSFERASE 14 U/L (12-78); ALBUMIN 2.7 G/DL (3.4-5.0); ALBUMIN/GLOBULIN RATIO 0.7 (1.0-2.7); ALKALINE PHOSPHATASE 60 U/L (46-116); ANION GAP 10 mmol/L (5-15); ASPARTATE AMINO TRANSFERASE 17 U/L (15-37); BILIRUBIN,TOTAL 0.6 MG/DL (0.2-1.0); BLOOD UREA NITROGEN 20 mg/dL (7-18); CALCIUM 8.2 MG/DL (8.5-10.1); CARBON DIOXIDE 24 MMOL/L (21-32); CHLORIDE 107 MMOL/L (98-107); CREATININE 1.6 MG/DL (0.55-1.30); POTASSIUM 4.2 MMOL/L (3.5-5.1); SODIUM 141 MMOL/L (136-145)
[2017-12-20 08:00] VITALS: BP 138/65
--- NOTE | 2017-12-20 08:22 | Pulmonology Progress Note ---
Assessment/Plan Assessment/Plan IMPRESSION: 1. Possible early pneumonia. 2. Evidence of bronchospasm, mild. 3. Hyperlipidemia. 4. Seizures. 5. Cerebrovascular accident. 6. No clear evidence of aspiration. 7. Coronary artery disease. 8. Coronary artery bypass grafting PLAN respiratory care as is oxygen noted imaging noted monitor for change follow up for change dc planning labs reviewed impression, plan, and exam edited and reviewed in detail care discussed with RN Subjective Allergies: Coded Allergies: No Known Allergies (Unverified , 12/16/17) Subjective care noted and reviewed baseline confusion Objective Last 24 Hour Vital Signs Date Time Temp Pulse Resp B/P (MAP) Pulse Ox O2 Delivery O2 Flow Rate FiO2 12/20/17 08:00 98.0 63 20 138/65 95 Room Air 98.0 12/20/17 04:00 59 12/20/17 04:00 97.5 66 24 135/69 97 Room Air 97.5 12/20/17 00:00 52 12/20/17 00:00 98.0 52 17 112/90 96 Room Air 98.0 12/19/17 21:10 96 112/64 12/19/17 20:38 96 18 Room Air 21 12/19/17 20:00 98.2 55 22 118/62 94 Room Air 98.2 12/19/17 20:00 62 12/19/17 16:00 97.7 53 19 112/64 95 Room Air 97.7 12/19/17 15:32 54 12/19/17 12:02 60 12/19/17 12:00 97.5 58 20 116/66 96 Room Air 97.5 12/19/17 09:22 64 20 Room Air 21 12/19/17 08:41 58 143/73 12/19/17 08:40 143/73 Intake and Output 12/19/17 12/20/17 19:00 07:00 Intake Total 400 ml Output Total 450 ml 500 ml Balance -50 ml -500 ml Intake Oral 400 ml Output Urine Total 450 ml 500 ml # Bowel Movements 1 1 Objective GENERAL: A well-developed male. Somewhat obese. HEENT: Negative. Oropharynx is moist. NECK: Supple. EXTREMITIES: Grossly intact. NECK: Supple. No jugular venous distention. LUNGS: no wheezes. no rhonchi. Reduced air entry. CARDIAC: Normal S1, S2. Regular rate and rhythm. Soft systolic murmur at the parasternal border. ABDOMEN: Soft, obese, and nontender. EXTREMITIES: No cyanosis or clubbing. NEUROLOGIC: There is focal weakness and some contractures noted overall. SKIN: Noted and reviewed. . Laboratory Tests 12/20/17 05:35: Sodium Level 141, Potassium Level 4.2, Chloride Level 107, Carbon Dioxide Level 24, Anion Gap 10, Blood Urea Nitrogen 20H, Creatinine 1.6H, Estimat Glomerular Filtration Rate , Glucose Level 97, Calcium Level 8.2L, Total Bilirubin 0.6, Aspartate Amino Transf (AST/SGOT) 17, Alanine Aminotransferase (ALT/SGPT) 14, Alkaline Phosphatase 60, Total Protein 6.8, Albumin 2.7L, Globulin 4.1, Albumin/ Globulin Ratio 0.7L Current Medications Medications (Trade) Dose Ordered Sig/Dick Route PRN Reason Start Time Stop Time Status Last Admin Dose Admin Acetaminophen (Tylenol) 650 mg Q4H PRN ORAL Mild Pain/Temp > 100.5 12/16/17 23:15 01/15/18 23:14 12/18/17 17:35 Albuterol/ Ipratropium (Albuterol/ Ipratropium) 3 ml Q4H PRN HHN Shortness of Breath 12/16/17 21:30 12/21/17 21:29 Amiodarone HCl (Cordarone) 200 mg DAILY ORAL 12/17/17 09:00 01/16/18 08:59 12/19/17 08:39 Aspirin (Ecotrin) 81 mg DAILY ORAL 12/17/17 09:00 01/16/18 08:59 12/19/17 08:39 Atorvastatin Calcium (Lipitor) 10 mg BEDTIME ORAL 12/17/17 21:00 01/16/18 20:59 12/19/17 21:10 Bisacodyl (Dulcolax) 10 mg Q24HRS PRN RECTAL Constipation 12/16/17 23:15 01/15/18 21:59 Diphenhydramine HCl (Benadryl) 25 mg Q24HRS PRN ORAL itching 12/16/17 23:15 01/15/18 21:59 Docusate Sodium (Colace) 100 mg DAILY ORAL 12/17/17 09:00 01/16/18 08:59 12/19/17 08:39 Fish Oil (Fish Oil) 1,000 mg DAILY ORAL 12/17/17 09:00 01/16/18 08:59 12/19/17 08:39 Heparin Sodium (Porcine) (Heparin 5000 units/ml) 5,000 units EVERY 12 HOURS SUBQ 12/17/17 09:00 01/16/18 08:59 12/19/17 21:11 Levetiracetam (Keppra) 1,000 mg BID ORAL 12/17/17 09:00 01/16/18 08:59 12/19/17 18:54 Metoprolol Tartrate (Lopressor) 25 mg EVERY 12 HOURS ORAL 12/17/17 09:00 01/16/18 08:59 12/19/17 21:10 Piperacillin Sod/ Tazobactam Sod 3.375 gm/Sodium Chloride 110 ml @ 27.5 mls/hr EVERY 8 HOURS IVPB 12/16/17 22:30 12/25/17 22:29 12/20/17 05:30 Pregabalin (Lyrica) 50 mg THREE TIMES A DAY ORAL 12/17/17 09:00 01/16/18 08:59 12/19/17 18:54 Donald Stein MD Dec 20, 2017 08:22
[2017-12-20] MEDS: Lyrica 50mg cap ORAL SCH (08:45)
[2017-12-20] MEDS: Docusate 100mg cap ORAL SCH (08:45)
[2017-12-20] MEDS: Aspirin EC 81mg tab ORAL SCH (08:45)
[2017-12-20] MEDS: Metoprolol 25mg tab ORAL SCH (08:45)
[2017-12-20] MEDS: Amiodarone 200mg tab ORAL SCH (08:46)
[2017-12-20] MEDS: Heparin 5000 units/ml inj SUBQ SCH (08:49)
[2017-12-20] MEDS ORDERED: Tubing IV Secondary IV ONE (10:08)
[2017-12-20] MEDS ORDERED: ZOSYN 3.373.375 GM/1 IVPB (10:29)
--- NOTE | 2017-12-20 11:00 | Infectious Diseases Prog Note ---
Assessment/Plan Assessment/Plan antibiotics : zosyn A 1. UTI s/p rx 2. hypertension 3. CVA 4. seizure disorder P 1. d/c zosyn 2. observe off antibiotics Subjective ROS Limited/Unobtainable: Yes Allergies: Coded Allergies: No Known Allergies (Unverified , 12/16/17) Objective Vital Signs Last 24 Hour Vital Signs Date Time Temp Pulse Resp B/P (MAP) Pulse Ox O2 Delivery O2 Flow Rate FiO2 12/20/17 08:45 63 138/65 12/20/17 08:00 98.0 63 20 138/65 95 Room Air 98.0 12/20/17 07:37 62 12/20/17 04:00 59 12/20/17 04:00 97.5 66 24 135/69 97 Room Air 97.5 12/20/17 00:00 52 12/20/17 00:00 98.0 52 17 112/90 96 Room Air 98.0 12/19/17 21:10 96 112/64 12/19/17 20:38 96 18 Room Air 21 12/19/17 20:00 98.2 55 22 118/62 94 Room Air 98.2 12/19/17 20:00 62 12/19/17 16:00 97.7 53 19 112/64 95 Room Air 97.7 12/19/17 15:32 54 12/19/17 12:02 60 12/19/17 12:00 97.5 58 20 116/66 96 Room Air 97.5 Height (Feet): 5 Height (Inches): 6.00 Weight (Pounds): 201 Respiratory/Chest: lungs clear Cardiovascular: normal rate, regular rhythm, no gallop/murmur Abdomen: soft, non tender Extremities: no edema Laboratory Tests Test 12/20/17 05:35 Sodium Level 141 MMOL/L (136-145) Potassium Level 4.2 MMOL/L (3.5-5.1) Chloride Level 107 MMOL/L (98-107) Carbon Dioxide Level 24 MMOL/L (21-32) Anion Gap 10 mmol/L (5-15) Blood Urea Nitrogen 20 mg/dL (7-18) H Creatinine 1.6 MG/DL (0.55-1.30) H Estimat Glomerular Filtration Rate mL/min (>60) Glucose Level 97 MG/DL (74-106) Calcium Level 8.2 MG/DL (8.5-10.1) L Total Bilirubin 0.6 MG/DL (0.2-1.0) Aspartate Amino Transf (AST/SGOT) 17 U/L (15-37) Alanine Aminotransferase (ALT/SGPT) 14 U/L (12-78) Alkaline Phosphatase 60 U/L (46-116) Total Protein 6.8 G/DL (6.4-8.2) Albumin 2.7 G/DL (3.4-5.0) L Globulin 4.1 g/dL Albumin/Globulin Ratio 0.7 (1.0-2.7) L Current Medications Medications (Trade) Dose Ordered Sig/Dick Route PRN Reason Start Time Stop Time Status Last Admin Dose Admin Acetaminophen (Tylenol) 650 mg Q4H PRN ORAL Mild Pain/Temp > 100.5 12/16/17 23:15 01/15/18 23:14 12/18/17 17:35 Albuterol/ Ipratropium (Albuterol/ Ipratropium) 3 ml Q4H PRN HHN Shortness of Breath 12/16/17 21:30 12/21/17 21:29 Amiodarone HCl (Cordarone) 200 mg DAILY ORAL 12/17/17 09:00 01/16/18 08:59 12/20/17 08:46 Aspirin (Ecotrin) 81 mg DAILY ORAL 12/17/17 09:00 01/16/18 08:59 12/20/17 08:45 Atorvastatin Calcium (Lipitor) 10 mg BEDTIME ORAL 12/17/17 21:00 01/16/18 20:59 12/19/17 21:10 Bisacodyl (Dulcolax) 10 mg Q24HRS PRN RECTAL Constipation 12/16/17 23:15 01/15/18 21:59 Diphenhydramine HCl (Benadryl) 25 mg Q24HRS PRN ORAL itching 12/16/17 23:15 01/15/18 21:59 Docusate Sodium (Colace) 100 mg DAILY ORAL 12/17/17 09:00 01/16/18 08:59 12/20/17 08:45 Fish Oil (Fish Oil) 1,000 mg DAILY ORAL 12/17/17 09:00 01/16/18 08:59 12/20/17 08:46 Heparin Sodium (Porcine) (Heparin 5000 units/ml) 5,000 units EVERY 12 HOURS SUBQ 12/17/17 09:00 01/16/18 08:59 12/20/17 08:49 Levetiracetam (Keppra) 1,000 mg BID ORAL 12/17/17 09:00 01/16/18 08:59 12/20/17 08:46 Metoprolol Tartrate (Lopressor) 25 mg EVERY 12 HOURS ORAL 12/17/17 09:00 01/16/18 08:59 12/20/17 08:45 Piperacillin Sod/ Tazobactam Sod 3.375 gm/Sodium Chloride 110 ml @ 27.5 mls/hr EVERY 8 HOURS IVPB 12/16/17 22:30 12/25/17 22:29 12/20/17 05:30 Pregabalin (Lyrica) 50 mg THREE TIMES A DAY ORAL 12/17/17 09:00 01/16/18 08:59 12/20/17 08:45 LESLIE BRANCH Dec 20, 2017 11:00
[2017-12-20 12:00] VITALS: BP 117/60
--- NOTE | 2017-12-21 02:45 | Discharge Summary ---
DATE OF ADMISSION: 12/16/2017 DATE OF DISCHARGE: 12/20/2017 ADMISSION DIAGNOSES: 1. Healthcare associated pneumonia. 2. UTI. 3. Seizure disorder. 4. Sepsis. 5. Toxic metabolic encephalopathy and prior history of stroke. 6. Hypertension. DISCHARGE DIAGNOSES: 1. Healthcare associated pneumonia. 2. UTI. 3. Seizure disorder. 4. Sepsis. 5. Toxic metabolic encephalopathy and prior history of stroke. 6. Hypertension. HOSPITAL COURSE: The patient is a pleasant male who complaints of healthcare associated pneumonia. He failed to respond to antibiotic therapy at the long-term facility. He was admitted. He was also diagnosed with urinary tract infection. He was continued on IV antibiotics. ID and Pulmonary consultations were obtained. The patient's x-ray cleared. On discharge, he was stable. He will be discharged for an additional week of IV antibiotic therapy to completed his full treatment for pneumonia, UTI and sepsis. DISCHARGE MEDICATIONS: Please see discharge medication list for discharge medications. DIET: Cardiac diet. ACTIVITY: Ad-halie. FOLLOWUP: The patient to follow up in one to two days at long-term facility. Tha Dover M.D. DR: GRACE JOB#: [id number] CC:
== END 2017-12-20 14:30 | DRG 871 ==
LOC: EDBD 14:44 → EDBEDREQ 15:08 → EMR 15:14 → 2E 15:22 → EDBEDREQ 19:16 → 2E 12-17 10:33
DX: A41.9 Sepsis, unspecified organism (principal); J18.9 Pneumonia, unspecified organism; G92 Toxic encephalopathy; N39.0 Urinary tract infection, site not specified; I69.352 Hemiplegia and hemiparesis following cerebral infarction affecting left dominant side; E11.9 Type 2 diabetes mellitus without complications; Y95 Nosocomial condition; Z87.891 Personal history of nicotine dependence; I25.10 Atherosclerotic heart disease of native coronary artery without angina pectoris; Z95.1 Presence of aortocoronary bypass graft; E78.5 Hyperlipidemia, unspecified; I10 Essential (primary) hypertension; I48.0 Paroxysmal atrial fibrillation; R56.9 Unspecified convulsions
CPT/HCPCS: 36415; 71045; 74230; 80053; 80202; 80299; 81003; 83605; 83735; 83880; 84484; 85025; 87040; 87081; 87086; 93005; 93306; 94640; 94664; 99285; J7620

== ENCOUNTER 2019-01-10 10:10 | Inpatient (IN) | payer MEDICARE, MEDICAID ==
[~2019-01-10] VITALS: Ht 170.2 cm; Wt 86.6 kg
[~2019-01-10 10:10] MED LIST: AMIODARONE HCL400 M1 ORAL; ASPIR 8181 MG ORAL; BENADRYL25 M3 PO; COLACE100 MG ORAL; DULCOLAX10 MG RC; FISH OIL CAP1000 MG ORAL; KEPPRA1000 MG ORAL; LISINOPRIL5 MG ORAL; LYRICA75 M1 ORAL; METOPROLOL TART25 MG ORAL; ZOSYN 3.373.375 GM/1 IVPB
--- NOTE | 2019-01-10 13:00 | NUR ---
NURSE NOTES: Received report from SERJIO Crandall at [facility] [place] [facility]. Pt arrived to unit at 1300. Pt transferred into bed in room 405-1. Vitals obtained, assessment done, see flowsheet. Pt is calm, talkative, pleasant, alert, disoriented to time, place and reason for admission, no complaints of pain, swabs taken and sent to lab at 1401. Pt changed into hospital gown, ID band placed on pt, photo taken of pt's sacral and jaren-buttocks area, noted skin tear on right medial buttocks, sacral scar and hypopigmentation, hyperpigmentation of bilateral buttocks. IV placed in right hand 22g. Bed in lowest position, call light within reach.
[2019-01-10 13:05] VITALS: BP 145/70
[2019-01-10] MEDS ORDERED: Milk of Magnesia 30ml Ud ORAL PRN (13:45)
[2019-01-10] MEDS ORDERED: guaiFENesin 100mg/5ml Liq ud ORAL PRN (13:45)
--- NOTE | 2019-01-10 14:37 | NUR ---
NURSE NOTES: Wound care Photos uploaded to system
[2019-01-10] MEDS: Solu-MEDROL 40mg Inj IVP SCH ×2 (14:48→21:24)
--- NOTE | 2019-01-10 14:52 | NUR ---
CASE MANAGEMENT: INITIAL REVIEW 73 YO M KIM FROM [facility] CC: N/A PMHx: HTN. CABG. PNA. DM. ANEMIA. SZ. CVA. SI: T 97.7 HR 76 RR 18 B/P 145/70 SATS 98% ON RA NO LABS TODAY IS: SOLU MEDROL IV Q8H LIPITOR PO QHS CORDARONE PO QD ASA PO QD CYMBALTA PO QD KEPPRA PO Q12H LOPRESSOR PO Q12H LYRICA PO TID PATIENT ADMITTED TO MED/SURG STATUS PLAN OF CARE: VENOUS DUPLEX Addendum: 01/11/19 at 1910 by Whitney Mas CM INTERQUAL MET
--- NOTE | 2019-01-10 14:54 | Diagnostic Imaging Report ---
EXAM: XR Chest, 1 View CLINICAL HISTORY: COUGH TECHNIQUE: Frontal view of the chest. COMPARISON: No relevant prior studies available. FINDINGS: Lungs: Retrocardiac atelectasis-consolidation. Accentuation of bronchovascular markings Pleural space: Blunting of the costophrenic angles that may be from effusions and/or pleural thickening. No pneumothorax. Heart: Large cardiac silhouette and surgical changes. Mediastinum: Unremarkable. Bones/joints: Sternotomy. IMPRESSION: Blunting of the costophrenic angles that may be from effusions and/or pleural thickening. Retrocardiac atelectasis-consolidation.
[2019-01-10 15:35] LABS: HEMATOCRIT 50.7 % (42.0-52.0); MEAN CORPUSCULAR VOLUME 92 FL (80-99); PLATELET COUNT 307 K/UL (150-450); RED CELL DISTRIBUTION WIDTH 12.1 % (11.6-14.8)
[2019-01-10 16:00] VITALS: BP 158/63
[2019-01-10 16:12] LABS: ALANINE AMINOTRANSFERASE 15 U/L (12-78); ALBUMIN 3.5 G/DL (3.4-5.0); ALBUMIN/GLOBULIN RATIO 0.9 (1.0-2.7); ALKALINE PHOSPHATASE 100 U/L (46-116); ANION GAP 11 mmol/L (5-15); ASPARTATE AMINO TRANSFERASE 22 U/L (15-37); BLOOD UREA NITROGEN 11 mg/dL (7-18); CARBON DIOXIDE 23 MMOL/L (21-32); CHLORIDE 105 MMOL/L (98-107); CHOLESTEROL 111 MG/DL (< 200); CREATININE 1.1 MG/DL (0.55-1.30); HDL CHOLESTEROL 40 MG/DL (40-60); POTASSIUM 4.7 MMOL/L (3.5-5.1); SODIUM 139 MMOL/L (136-145); TRIGLYCERIDES 122 MG/DL (30-150)
--- NOTE | 2019-01-10 16:19 | NUR ---
NURSE NOTES: Notified Dr. Dover of troponin 0.[address] Dover stated Dr. Luna will see pt
[2019-01-10] MEDS: Lyrica 50mg cap ORAL SCH (17:20)
[2019-01-10] MEDS ORDERED: levETIRAcetam 500mg/5ml Liquid ORAL SCH (18:00)
[2019-01-10] MEDS: Albuterol/Ipratropium 3ml neb HHN SCH (19:00)
[2019-01-10 19:03] LABS: CKMB 1.5 NG/ML (0.0-3.6)
--- NOTE | 2019-01-10 19:24 | NUR ---
NURSE NOTES: Left message for Dr. Luna regarding duplicate CXR order, duplicate Troponin order, and order for Rocephin. Lab is asking if troponin needs to be done again since one was taken today Pharmacy is asking about the order for Rocephin as pt has allergy to penicillin. Pt states he gets itching when taking penicillin. Dr. Luna called back at 192. Does want to order Rocephin for pt. Does want a repeat troponin due to elevated first result and does want the CXR for 01/11 Rn call lab to confirm and pharmacy to confirm
--- NOTE | 2019-01-10 19:37 | NUR ---
HAND-OFF: Report given to SURESH Sage. Pt in stable condition.
[2019-01-10 20:00] VITALS: BP 137/70
--- NOTE | 2019-01-10 20:13 | NUR ---
NURSE NOTES: Received patient in bed. AAO x 4. On room air. No fever noted at this time. No acute distress noted. Swaps pending. Needs to collect sputum culture. Bed locked, lowest position, bed alarm on, side rails up x 2, call light within reach. Will continue to monitor.
[2019-01-10] MEDS ORDERED: Metoprolol 25mg tab ORAL SCH (21:00)
[2019-01-10] MEDS: levETIRAcetam 500mg/5ml Liquid ORAL SCH (21:24)
[2019-01-10] MEDS: Metoprolol 25mg tab ORAL SCH (21:25)
[2019-01-10] MEDS: Heparin 5000 units/ml inj SUBQ SCH (21:27)
[2019-01-10] MEDS: cefTRIAXone 1 GM in D5W 55 ML IVPB SCH (21:29)
--- NOTE | 2019-01-10 23:30 | History and Physical Report ---
DATE OF ADMISSION: 01/10/2019 CHIEF COMPLAINT: Shortness of breath. HISTORY OF PRESENT ILLNESS: The patient is a 73-year-old male. He has a prior history of stroke with hemiparesis, hypertension, diabetes, renal insufficiency. He presented from a correction facility with complaints of shortness of breath. He was seen little over a day ago with complaints of shortness of breath. At that time, he was noted to have wheezing. breathing treatments and steroids. A chest x-ray done was unremarkable. Despite aggressive therapy at the correction facility, the patient continued to have worsening shortness of breath and is therefore admitted for further inpatient evaluation and care. The patient denies any fevers or chills. He has had a mild nonproductive cough. Denies any chest pain. PAST MEDICAL HISTORY: As above. PAST SURGICAL HISTORY: None. CURRENT MEDICATIONS: Reconciled and reviewed. ALLERGIES: Include penicillin. FAMILY HISTORY: Noncontributory. SOCIAL HISTORY: The patient is a prior smoker. No alcohol. No drugs. REVIEW OF SYSTEMS: GENERAL: No fevers or chills. HEENT: No headaches or visual changes. CARDIOPULMONARY: Without chest pain, but positive shortness of breath, cough, and congestion. GASTROINTESTINAL: No nausea or vomiting. GENITOURINARY: No urgency or frequency. MUSCULOSKELETAL: No joint pain or swelling. NEUROLOGICAL: No seizures. Positive history of stroke. PHYSICAL EXAMINATION: VITAL SIGNS: Temperature was 98.3, pulse 68, respirations 18, and blood pressure 150/63. GENERAL: The patient is a chronically ill-appearing male. He is awake and alert. HEENT: His pupils are equal, round, and reactive to light ____. Oropharynx clear. NECK: Supple. HEART: Regular rate and rhythm. LUNGS: Significant for scattered wheezes. ABDOMEN: Soft, nontender, and nondistended. EXTREMITIES: Without clubbing, cyanosis, or edema. The patient has hemiparesis noted. LABORATORIES: X-ray are currently pending. ASSESSMENT: 1. This is a 73-year-old male with a prior history of stroke, hypertension, and diabetes admitted with complaints of shortness of breath secondary to COPD exacerbation . 2. Diabetes. 3. Hypertension. 4. History of chronic kidney disease. PLAN: Intravenous steroids and respiratory treatments. Empiric antibiotic therapy. Follow up pending labs. Follow up chest x-ray. Continue antiplatelet therapy. Pulmonary and Cardiology consultations to be obtained. Tha Dover M.D. DR: LUBA JOB#: [id number] CC:
[2019-01-11] VITALS: BP 126/79
[2019-01-11] MEDS: Albuterol/Ipratropium 3ml neb HHN SCH ×4 (01:07→19:14)
--- NOTE | 2019-01-11 02:30 | Consultation ---
DATE OF CONSULTATION: 01/10/2019 CONSULTING PHYSICIAN: Roby Luna M.D. REQUESTING PHYSICIAN: Tha Dover M.D. REASON FOR CONSULTATION: Elevated troponin level. HISTORY OF PRESENT ILLNESS: This 73-year-old male who resides at a care home facility and has multiple risk factors for coronary artery disease. He was hospitalized because of progressive shortness of breath, congestion, and inadequate response to outpatient care. He recently was started on steroids and antimicrobials, but did not improve. He has not had any complaints of chest pain, but has had persistent nonproductive cough, but no fevers or chills. His admission laboratory studies were notable for an elevated troponin level. I have been asked to assist with cardiovascular care. The patient has also had an elevated natriuretic peptide essay, further prompting cardiovascular concerns. PAST MEDICAL HISTORY: Cerebrovascular disease with history of cerebrovascular accident and left hemiparesis, paroxysmal atrial fibrillation, hypertension, type 2 diabetes mellitus, and chronic kidney disease. ALLERGIES: Penicillin. FAMILY HISTORY: Noncontributory. MEDICATIONS: Prior to admission, reviewed and reconciled. SOCIAL HISTORY: Prior smoker, pack-year quantity not known. No alcohol or substance abuse. Presently resides in a care home facility. REVIEW OF SYSTEMS: No fevers or chills. No history of retinopathy. No loss of vision. No chest pain. No leg swelling. No nausea or vomiting. No change in bowel habits. No frequency or dysuria. No history of prostate cancer. He has had prior stroke and has hemiparesis. No seizures noted. There is no known history of thyroid disorder. He is on amiodarone for suppression of atrial arrhythmias. Cholesterol parameters are not available. He does have history of diabetes, treated with oral medications. PHYSICAL EXAMINATION: VITAL SIGNS: Afebrile, blood pressure 150/63, pulse 68, and respiratory rate 18. GENERAL: An ill-appearing, no acute distress. HEENT: Conjunctivae pink. Sclerae are anicteric. Oropharynx clear. Mucous membranes moist. NECK: Supple. Jugular venous pressure normal. No bruits. Carotid upstrokes without delay. LUNGS: Scattered expiratory wheezes and rhonchi. CARDIAC: Regular rhythm and rate. Normal S1 and S2 with a fourth heart sound. ABDOMEN: Soft and nontender. No pulsatile masses. EXTREMITIES: No clubbing or cyanosis. No edema. SKIN: Intact. LABORATORY DATA: Chest x-ray revealed retrocardiac infiltrate and atelectasis. Troponin 0.062. Pro-natriuretic peptide 5364. Albumin 3.5, glucose 147. Liver function within normal limits. Sodium 139, potassium 4.7, bicarbonate 23, BUN 11, and creatinine 1.1. EKG pending. IMPRESSION: 1. Probable pneumonia due to aspiration, healthcare-acquired. 2. Acute on chronic diastolic congestive heart failure. 3. Acute myocardial ischemia and possible non-ST elevation infarction. 4. Chronic obstructive pulmonary disease with acute exacerbation and paroxysmal bronchospasm. 5. Type 2 diabetes mellitus. 6. Paroxysmal atrial fibrillation suppressed wih amiodarone. PLAN: 1. Respiratory hygiene. 2. Bronchodilators. 3. Empiric antimicrobials. 4. Consideration for steroids. 5. Monitor volume status. 6. Reassess for diuresis. 7. Serial troponin level. 8. Review electrocardiogram. 9. Anti-platelet therapy. 10. DVT prophylaxis. 11. Check lipid panel. 12. Continue amiodarone; check thyroid function. Roby Luna M.D. DR: HEAVEN JOB#: [id number] CC: SCAR
[2019-01-11 04:00] VITALS: BP 138/81
[2019-01-11] MEDS: Solu-MEDROL 40mg Inj IVP SCH ×3 (05:14→21:40)
--- NOTE | 2019-01-11 07:12 | NUR ---
HAND-OFF: Report given to SURESH Becerra.
--- NOTE | 2019-01-11 07:14 | NUR ---
NURSE NOTES: Received report from SURESH Sage. Pt in bed, awake, talkative, RN assisted pt into comfortable position, no apparent distress noted, no complaints of pain, bed in lowest position, call light within reach.
[2019-01-11 07:18] LABS: ANION GAP 10 mmol/L (5-15); BLOOD UREA NITROGEN 16 mg/dL (7-18); CALCIUM 8.9 MG/DL (8.5-10.1); CARBON DIOXIDE 24 MMOL/L (21-32); CHLORIDE 106 MMOL/L (98-107); CHOLESTEROL 122 MG/DL (< 200); CREATININE 1.3 MG/DL (0.55-1.30); HDL CHOLESTEROL 47 MG/DL (40-60); POTASSIUM 4.4 MMOL/L (3.5-5.1); SODIUM 140 MMOL/L (136-145); TRIGLYCERIDES 74 MG/DL (30-150)
[2019-01-11 08:00] VITALS: BP 145/88
[2019-01-11] MEDS: levETIRAcetam 500mg/5ml Liquid ORAL SCH ×2 (08:31→20:35)
[2019-01-11] MEDS: Aspirin Baby 81mg ORAL SCH (08:32)
[2019-01-11] MEDS: Docusate 100mg cap ORAL SCH (08:32)
[2019-01-11] MEDS: Ascorbic Acid 500mg tab ORAL SCH (08:33)
[2019-01-11] MEDS: Metoprolol 25mg tab ORAL SCH ×2 (08:33→20:36)
[2019-01-11] MEDS: Lyrica 50mg cap ORAL SCH ×3 (08:34→17:10)
[2019-01-11] MEDS: Amiodarone 200mg tab ORAL SCH (08:35)
[2019-01-11] MEDS: Heparin 5000 units/ml inj SUBQ SCH ×2 (08:38→20:38)
--- NOTE | 2019-01-11 08:49 | Diagnostic Imaging Report ---
EXAM: XR Chest, 2 Views CLINICAL HISTORY: ABN CHST TECHNIQUE: Frontal and lateral views of the chest. COMPARISON: Chest x-rays dated 01/10/19 FINDINGS: Limitations: The lateral view is degraded by under exposure. Lungs: Subsegmental atelectasis versus infiltrate in the left lung base, unchanged. Persistent pulmonary vascular congestion. Pleural space: Small left pleural effusion, not significantly changed. Heart: Cardiomegaly, unchanged. Mediastinum: Unremarkable. Bones/joints: Status post median sternotomy. Degenerative changes throughout the visualized spine and shoulder joints. Vasculature: Atherosclerotic calcifications are noted within the aortic arch. IMPRESSION: 1. No significant interval change compared to prior exam. Findings suggesting CHF, with unchanged cardiomegaly, pulmonary vascular congestion, and small left pleural effusion. 2. Subsegmental atelectasis versus infiltrate in the left lung base, unchanged.
[2019-01-11 11:38] VITALS: BP 139/79
--- NOTE | 2019-01-11 15:04 | General Progress Note ---
Assessment/Plan Problem List: (1) Sepsis ICD Codes: A41.9 - Sepsis, unspecified organism SNOMED: 93676614 (2) UTI (urinary tract infection) ICD Codes: N39.0 - Urinary tract infection, site not specified SNOMED: 52980448 (3) Toxic metabolic encephalopathy ICD Codes: G92 - Toxic encephalopathy SNOMED: 753521645 Status: stable, progressing Assessment/Plan: wean steroids check full lfts o2 antiplt rx duplex legs echo dc planning saturday Subjective ROS Limited/Unobtainable: No Constitutional: Reports: malaise, weakness HEENT: Reports: no symptoms Cardiovascular: Reports: no symptoms Respiratory: Reports: no symptoms Gastrointestinal/Abdominal: Reports: no symptoms Genitourinary: Reports: no symptoms Neurologic/Psychiatric: Reports: pre-existing deficit Endocrine: Reports: no symptoms Hematologic/Lymphatic: Reports: no symptoms Allergies: Coded Allergies: PENICILLINS (Verified Allergy, Mild, Itching, 01/10/19) All Systems: reviewed and negative except above Subjective no events. w/o complaints. no fever or chills. feels "hot." decreased sob. Objective Last 24 Hour Vital Signs Date Time Temp Pulse Resp B/P (MAP) Pulse Ox O2 Delivery O2 Flow Rate FiO2 01/11/19 13:16 74 18 99 Room Air 01/11/19 13:05 62 16 96 Room Air 01/11/19 12:44 97.4 01/11/19 11:38 97.4 69 16 139/79 (99) 96 01/11/19 09:00 Room Air 01/11/19 08:33 73 145/88 01/11/19 08:00 97.4 73 16 145/88 (107) 96 01/11/19 07:29 80 16 98 Room Air 01/11/19 07:20 68 18 98 Room Air 01/11/19 04:00 97.3 71 18 138/81 (100) 95 01/11/19 01:09 72 18 96 Room Air 01/11/19 01:08 76 18 98 Room Air 01/11/19 01:00 72 18 96 Room Air 01/11/19 00:00 97.6 71 18 126/79 (95) 97 01/10/19 21:25 70 137/70 01/10/19 21:00 Room Air 01/10/19 20:00 98.3 70 18 137/70 (92) 94 01/10/19 16:00 98.2 68 18 158/63 (94) 93 Intake and Output 01/10/19 01/11/19 18:59 06:59 Intake Total 400 ml 55 ml Output Total 100 ml Balance 400 ml -45 ml Intake Oral 400 ml IV Total 55 ml Output Urine Total 100 ml # Voids 2 Laboratory Tests 01/10/19 15:20: White Blood Count 6.0, Red Blood Count 5.50, Hemoglobin 17.0, Hematocrit 50.7, Mean Corpuscular Volume 92, Mean Corpuscular Hemoglobin 30.8, Mean Corpuscular Hemoglobin Concent 33.5, Red Cell Distribution Width 12.1, Platelet Count 307, Mean Platelet Volume 5.5L, Neutrophils (%) (Auto) , Lymphocytes (%) (Auto) , Monocytes (%) (Auto) , Eosinophils (%) (Auto) , Basophils (%) (Auto) , Sodium Level 139, Potassium Level 4.7, Chloride Level 105, Carbon Dioxide Level 23, Anion Gap 11, Blood Urea Nitrogen 11, Creatinine 1.1, Estimat Glomerular Filtration Rate , Glucose Level 147H, Calcium Level 9.0, Total Bilirubin 1.0, Aspartate Amino Transf (AST/SGOT) 22, Alanine Aminotransferase (ALT/SGPT) 15, Alkaline Phosphatase 100, Total Creatine Kinase 85, Creatine Kinase MB 1.5, Creatine Kinase MB Relative Index 1.7, Troponin I 0.062H, Pro-B-Type Natriuretic Peptide 5364H, Total Protein 7.6, Albumin 3.5, Globulin 4.1, Albumin /Globulin Ratio 0.9L, Triglycerides Level 122, Cholesterol Level 111, LDL Cholesterol 63, HDL Cholesterol 40, Cholesterol/HDL Ratio 2.8L 01/10/19 20:00: Troponin I 0.049 01/11/19 05:40: Sodium Level 140, Potassium Level 4.4, Chloride Level 106, Carbon Dioxide Level 24, Anion Gap 10, Blood Urea Nitrogen 16, Creatinine 1.3, Estimat Glomerular Filtration Rate , Glucose Level 186H, Calcium Level 8.9, Triglycerides Level 74 , Cholesterol Level 122, LDL Cholesterol 71, HDL Cholesterol 47, Cholesterol/ HDL Ratio 2.6L, Thyroid Stimulating Hormone (TSH) 0.163L Height (Feet): 5 Height (Inches): 7.00 Weight (Pounds): 191 General Appearance: WD/WN, alert Neck: supple Cardiovascular: normal rate, regular rhythm Respiratory/Chest: chest wall non-tender, lungs clear, normal breath sounds, no respiratory distress Abdomen: normal bowel sounds, non tender, soft, no organomegaly Edema: no edema noted Arm (L), no edema noted Arm (R), no edema noted Leg (L), no edema noted Leg (R), no edema noted Pedal (L), no edema noted Pedal (R), no edema noted Generalized Neurologic: formstone fitter II-XII grossly normal, alert, oriented x 3 Tha Dover MD Jan 11, 2019 15:04
[2019-01-11 16:00] VITALS: BP 123/67
--- NOTE | 2019-01-11 17:19 | NUR ---
CASE MANAGEMENT: REVIEW 01/11/2019 SI:PNEUMONITIS D/T INHALATION OF FOOD AND VOMIT T 97.4 HR 69 RR 16 B/P 139/79 SATS 96% ON RA GLU 186 IS: SOLU MEDROL IV Q8H LIPITOR PO QHS CORDARONE PO QD ASA PO QD CYMBALTA PO QD KEPPRA PO Q12H LOPRESSOR PO Q12H LYRICA PO TID MED/SURG STATUS PLAN OF CARE: VENOUS DUPLEX IV ANTIBX IV STEROIDS RESP THERAPIES
--- NOTE | 2019-01-11 19:12 | NUR ---
HAND-OFF: Report given to SURESH Sage.
--- NOTE | 2019-01-11 19:16 | NUR ---
NURSE NOTES: Received report from SURESH Becerra. Patient is in bed. AAO x 4. On room air. No complains of pain and SOB. No acute distress noted. Bed locked, lowest position, bed alarm on, side rails up x 2, call light within reach. Will continue to monitor.
[2019-01-11 20:00] VITALS: BP 123/65
[2019-01-11] MEDS: cefTRIAXone 1 GM in D5W 55 ML IVPB SCH (20:35)
--- NOTE | 2019-01-11 21:00 | Progress Note ---
DATE: 01/11/2019 CARDIOLOGY PROGRESS NOTE SUBJECTIVE: The patient has no new complaints. He has been afebrile. He has less congestion and shortness of breath, but still has cough and mucus production. Chest x-ray revealed pulmonary venous congestion and possible retrocardiac infiltrate. OBJECTIVE: VITAL SIGNS: Blood pressure 139/79, pulse 69, respirations 16, and afebrile. LUNGS: Coarse breath sounds. Scattered rhonchi. HEART: Regular rhythm and rate. Normal S1 and S2. ABDOMEN: Soft. EXTREMITIES: No edema. LABORATORY AND DIAGNOSTIC DATA: Potassium is 4.4, BUN 16, and creatinine 1.3. TSH 0.16. LDL cholesterol 71. Troponin negative. IMPRESSION: 1. Healthcare-acquired aspiration pneumonia. 2. Type 2 diabetes mellitus with hyperglycemia. 3. Acute myocardial ischemia. 4. Acute on chronic diastolic congestive heart failure. 5. Trenmkqy-dr-wlkwot protein-calorie malnutrition. PLAN: 1. Antimicrobials. 2. Respiratory hygiene. 3. Followup sputum culture. 4. Diuresis. 5. Protein supplements. 6. Continue beta-loni and anti-platelet therapy. 7. Antiseizure drugs. 8. Taper steroids. 9. Continue inhaled bronchodilators. 10. DVT prophylaxis. Roby Luna M.D. DR: Brent JOB#: [id number] CC:
[2019-01-12] VITALS: BP 106/62
[2019-01-12] MEDS: Albuterol/Ipratropium 3ml neb HHN SCH ×4 (01:21→19:05)
[2019-01-12 04:00] VITALS: BP 131/76
--- NOTE | 2019-01-12 07:21 | NUR ---
HAND-OFF: Report given to SURESH Guerra.
--- NOTE | 2019-01-12 07:25 | NUR ---
NURSE NOTES: Received pt in bed, sleeping. No S/s of distress/pain. On room air. IV on the R FA, intact and patent, with saline lock. Bed locked, lowest position, and alarm on. Call light within reach. Will continue to monitor.
[2019-01-12 07:28] LABS: ALANINE AMINOTRANSFERASE 12 U/L (12-78); ALBUMIN/GLOBULIN RATIO 0.8 (1.0-2.7); ALKALINE PHOSPHATASE 80 U/L (46-116); ANION GAP 10 mmol/L (5-15); ASPARTATE AMINO TRANSFERASE 21 U/L (15-37); BILIRUBIN,TOTAL 0.5 MG/DL (0.2-1.0); BLOOD UREA NITROGEN 26 mg/dL (7-18); CALCIUM 8.3 MG/DL (8.5-10.1); CARBON DIOXIDE 23 MMOL/L (21-32); CHLORIDE 105 MMOL/L (98-107); CREATININE 1.7 MG/DL (0.55-1.30); POTASSIUM 4.3 MMOL/L (3.5-5.1); SODIUM 138 MMOL/L (136-145)
[2019-01-12 08:00] VITALS: BP 133/75
[2019-01-12] MEDS: Heparin 5000 units/ml inj SUBQ SCH ×2 (08:35→21:25)
[2019-01-12] MEDS: levETIRAcetam 500mg/5ml Liquid ORAL SCH ×2 (08:35→21:07)
[2019-01-12] MEDS: Ascorbic Acid 500mg tab ORAL SCH (08:36)
[2019-01-12] MEDS: Aspirin Baby 81mg ORAL SCH (08:36)
[2019-01-12] MEDS: Metoprolol 25mg tab ORAL SCH ×2 (08:36→21:09)
[2019-01-12] MEDS: Docusate 100mg cap ORAL SCH (08:36)
[2019-01-12] MEDS: Amiodarone 200mg tab ORAL SCH (08:36)
[2019-01-12] MEDS: Lyrica 50mg cap ORAL SCH ×3 (08:38→17:52)
[2019-01-12] MEDS: Solu-MEDROL 40mg Inj IVP SCH ×2 (10:00→21:09)
--- NOTE | 2019-01-12 11:00 | NUR ---
NURSE NOTES: WOUND CARE NOTES:Pt presented on admission with non-blanchable erythema with fluctuance R heel. Tender when minimally palpated. L heel is soft but blanchable. Non-tender when minimally palpated. Sacrum is yoni pink along cleft but non-tender when minimally palpated. No other skin concerns noted. Tx.Plan: Apply Moisture Barrier Paste to Sacrum. Cover with Optifoam drsg. Change every 3 days and prn. Apply Cavilon Skin Barrier to both heels. Cover each heel with Optifoam, drsg. Change every 7 days and prn. Off-load heels with pillow. Reposition at least every 2hours or as tolerated.
[2019-01-12 12:00] VITALS: BP 124/70
[2019-01-12 16:00] VITALS: BP 109/62
--- NOTE | 2019-01-12 16:09 | NUR ---
CASE MANAGEMENT:REVIEW 01/12/19 SI: ASPIRATION PNA. AMI AC/CHR CHF. MALNUTRITION 97.8 68 18 109/62 99% ON RA BUN+26 CR+1.7 BNP+6347 IS: IV SOLUMEDROL Q12 IV LASIX QD IV ROCEPHIN Q24 DUONEB HHN Q6HRS RTC AMIODARONE PO QD ASA PO QD HEPARIN SQ Q12 KEPPRA PO Q12 LOPRESSOR PO Q12 : MED/SURG STATUS 4 EAST DCP: FROM [facility]
--- NOTE | 2019-01-12 19:31 | NUR ---
HAND-OFF: Report given to SURESH Guzman.
--- NOTE | 2019-01-12 19:35 | NUR ---
Received report from SURESH Guerra. Patient is in bed, awake and alert x3. On room air with no signs of distress or SOB. IV is intact. Bed is locked and in lowest position. Side rails up and padded for seizure precautions. Bed alarm activated. Call light in reach. Will continue to monitor.
[2019-01-12 20:00] VITALS: BP 130/84
[2019-01-12] MEDS: cefTRIAXone 1 GM in D5W 55 ML IVPB SCH (21:07)
[2019-01-13] MEDS: Albuterol/Ipratropium 3ml neb HHN SCH ×4 (00:23→18:58)
--- NOTE | 2019-01-13 02:30 | Progress Note ---
DATE: 01/12/2019 CARDIOLOGY PROGRESS NOTE SUBJECTIVE: The patient has difficulty with verbal communication. He does not seem to have any chest pain. No shortness of breath. Congestion is somewhat better. He still has a cough. OBJECTIVE: VITAL SIGNS: Blood pressure 130/80, pulse 74, respirations 18, and afebrile. LUNGS: Few rhonchi. HEART: Regular rhythm and rate. Normal S1, S2. ABDOMEN: Soft. EXTREMITIES: No edema. LABORATORY DATA: BUN is up to 26, creatinine 1.7, potassium 4.3. Pro-natriuretic peptide 6300. Thyroid function notable for free T4 of 2.9, free T3 of 1.4, TSH 0.075. IMPRESSION: 1. CVA. 2. Dementia. 3. Left hemiparesis. 4. Acute on chronic diastolic congestive heart failure. 5. Mild protein-calorie malnutrition. 6. Euthyroid state, but abnormal thyroid panel due to amiodarone. 7. Paroxysmal atrial fibrillation. 8. Aspiration within healthcare-acquired pneumonia. 9. Acute on chronic kidney insufficiency post diuresis. PLAN: 1. Await sputum culture. 2. Continue respiratory hygiene and antimicrobials. 3. Diuresis. 4. Maintenance dose amiodarone. 5. Follow up renal function. 6. DVT prophylaxis. 7. Steroid taper. Roby Luna M.D. DR: ANNA JOB#: [id number] CC:
[2019-01-13 04:00] VITALS: BP 127/66
--- NOTE | 2019-01-13 07:00 | NUR ---
HAND-OFF: Report given to SURESH Guerra.
--- NOTE | 2019-01-13 07:21 | NUR ---
NURSE NOTES: Received pt in bed. AO x3. No c/o of distress/pain. On room air. IV 22g on R hand intact, and patent, with saline lock. Bed is in the lowest, locked, and alarm on. Call light within reach. Will continue to monitor.
[2019-01-13 07:22] LABS: HEMATOCRIT 49.5 % (42.0-52.0); HEMOGLOBIN 16.3 G/DL (14.2-18.0); MEAN CORPUSCULAR VOLUME 94 FL (80-99); PLATELET COUNT 298 K/UL (150-450); RED BLOOD COUNT 5.25 M/UL (4.70-6.10); RED CELL DISTRIBUTION WIDTH 12.9 % (11.6-14.8); WHITE BLOOD COUNT 12.4 K/UL (4.8-10.8)
[2019-01-13 07:49] LABS: ALANINE AMINOTRANSFERASE 22 U/L (12-78); ALBUMIN 2.9 G/DL (3.4-5.0); ALBUMIN/GLOBULIN RATIO 0.7 (1.0-2.7); ALKALINE PHOSPHATASE 78 U/L (46-116); ANION GAP 10 mmol/L (5-15); ASPARTATE AMINO TRANSFERASE 28 U/L (15-37); BILIRUBIN,TOTAL 0.5 MG/DL (0.2-1.0); BLOOD UREA NITROGEN 36 mg/dL (7-18); CALCIUM 8.7 MG/DL (8.5-10.1); CARBON DIOXIDE 25 MMOL/L (21-32); CHLORIDE 105 MMOL/L (98-107); CREATININE 1.7 MG/DL (0.55-1.30); POTASSIUM 4.1 MMOL/L (3.5-5.1); SODIUM 140 MMOL/L (136-145)
[2019-01-13 08:00] VITALS: BP 137/75
[2019-01-13] MEDS: Heparin 5000 units/ml inj SUBQ SCH (09:00)
[2019-01-13] MEDS: Metoprolol 25mg tab ORAL SCH (09:02)
[2019-01-13] MEDS: Docusate 100mg cap ORAL SCH (09:02)
[2019-01-13] MEDS: Ascorbic Acid 500mg tab ORAL SCH (09:02)
[2019-01-13] MEDS: levETIRAcetam 500mg/5ml Liquid ORAL SCH (09:03)
[2019-01-13] MEDS: Amiodarone 200mg tab ORAL SCH (09:03)
[2019-01-13] MEDS: Lyrica 50mg cap ORAL SCH ×3 (09:04→17:56)
[2019-01-13] MEDS: Aspirin Baby 81mg ORAL SCH (09:04)
--- NOTE | 2019-01-13 11:32 | NUR ---
RD ASSESSMENT & RECOMMENDATIONS SEE CARE ACTIVITY FOR COMPLETE ASSESSMENT DAILY ESTIMATED NEEDS: Needs based on Renal, cardiac 72kg adj 25-30 kcals/kg 2078-0273 total kcals .8-1.2 g protein/kg 58-86 g total protein 25-30 mL/kg 5938-1980 total fluid mLs NUTRITION DIAGNOSIS: Altered nutrition related lab values r/t clinical status and DM as evidenced by elev BUN and Creat (36/1.7), elev BG (mid to upper 100's), elev BNP 3675. PO DIET RECOMMENDATIONS: Cardiac/ CCHO MED DIET (texture per VARNISH MELTER) ADDITIONAL RECOMMENDATIONS: 1) Recalibrate bed scale for CBW 2) VARNISH MELTER eval for appropriate texture H/o CVA w/ L side hemiparesis 3) HGA1C for eval 4) Wound care eval for open R buttock wound
[2019-01-13 12:00] VITALS: BP 131/66
--- NOTE | 2019-01-13 15:20 | NUR ---
DISCHARGE PLANNING DISCHARGE ORDER NOTED CLINCALS FAXED TO [facility]– [place] AWAIT ROOM ASSIGNMENT
--- NOTE | 2019-01-13 15:57 | NUR ---
DISCHARGE PLANNED PATIENT IS RETURNING TO [facility] ROOM 226C SKILLED T: [phone] FOR NURSE TO NURSE REPORT [facility] HAS BEEN ARRANGED FOR [address] [employer] TENDER LEFT VMM FOR , ALFONSO, REGARDING DISCHARGE
[2019-01-13 16:00] VITALS: BP 133/76
--- NOTE | 2019-01-13 18:06 | Cardiology Report ---
APPROVED REPORT EKG Measurement Heart [id number] Sinus rhythm with 1st degree AV block with premature atrial complexes with aberrant conduction Right bundle branch block Septal infarct, age undetermined Possible Lateral infarct, age undetermined Abnormal ECG
--- NOTE | 2019-01-13 19:42 | NUR ---
NURSE NOTES: Patient is discharged to [facility] via [facility]. Report was given to SURESH Pavon at the [facility]. was notified for discharge. ID band and IV was removed. No infections and swelling on the IV removal site. Picture was taken on the sacral where healed wounds are. Belongings were accounted and given to ambulance personal. Discharge instructions were given.
--- NOTE | 2019-01-14 01:00 | Progress Note ---
DATE: 01/13/2019 CARDIOLOGY PROGRESS NOTE SUBJECTIVE: The patient has no distress. Remains on antimicrobials. Cultures are negative. OBJECTIVE: VITAL SIGNS: Vital signs 133/76, pulse 72, and respirations 20. LUNGS: A few rhonchi. CARDIAC: Regular rhythm and rate. Normal S1 and S2. ABDOMEN: Soft. No edema. Left hemiparesis. IMPRESSION: 1. Healthcare-acquired aspiration pneumonia. 2. Acute on chronic diastolic congestive heart failure. 3. Acute on chronic renal failure, worsened with diuresis. 4. Hypertensive heart disease. 5. Cerebrovascular accident with left hemiparesis. PLAN: 1. Hold additional diuresis. 2. Complete antibiotics at assisted facility. 3. Aspiration precautions. 4. Respiratory hygiene. 5. Deep venous thrombosis prophylaxis. 6. Maintain current cardiovascular regimen and reassess need for diuretic therapy in the future. 7. No plan for chronic diuretic therapy at this time. Roby Luna M.D. DR: TOMÁS JOB#: [id number] CC:
--- NOTE | 2019-01-14 08:57 | Diagnostic Imaging Report ---
APPROVED REPORT CPT Code: 70873 Present Symptoms Comments: Swelling BILATERAL: Imaging reveals a patent deep venous system bilaterally. There is no evidence of thrombus within the femoral, popliteal or tibial segments. The greater saphenous veins are also within normal limits. Doppler indicates normal spontaneous flow within these segments.
--- NOTE | 2019-01-14 10:00 | Discharge Summary ---
Discharge Summary Discharge Summary _ DATE OF ADMISSION: 01/10/2019 DATE OF DISCHARGE: 01/13/2019 DISCHARGED BY: Dr. Dover REASON FOR ADMISSION: 73 years old male with past medical history of CVA with hemiparesis, hypertension, diabetes mellitus, renal insufficiency, presented from assisted facility complaining of shortness of breath. Patient was seen at the facility few days ago and at that time noted to have shortness of breath and wheezing. Patient started on breathing treatment and steroids. Chest x-ray was unremarkable. Despite aggressive therapy at the assisted facility, patient continued to have worsening shortness of breath and therefore admitted for inpatient evaluation and management. No reported fever or chills. Patient reported mild nonproductive cough. No chest pain. On admission laboratory work-up revealed no leukocytosis, stable renal parameters and electrolytes. Chest x-ray demonstrated blunting of the costophrenic angles that may be from effusions and/or pleural thickening. Retrocardiac atelectasis-consolidation. Patient with DNR/DNI status. CONSULTANTS: teaching aide HOSPITAL COURSE: Patient admitted to medical surgical floor. Supplemental oxygen provided as needed to keep pulse oximetry above 90%. Pulmonary toilet provided with nebulizing therapy around the clock and as needed. Patient started on intravenous steroids with gradual tapering down. Patient was started on empiric antibiotic. Sputum culture was negative. Antitussive provided as needed Patient was counseled to continue abstinence from smoking. Venous duplex bilateral lower extremity revealed no evidence of acute DVT. DVT prophylaxis provided. Home medication continue. Antiplatelet therapy with aspirin continued. Amiodarone continued. Thyroid function panel revealed low TSH and high free T4 . Per teaching aide, patient had euthyroid state , (but abnormal thyroid panel due to amiodarone. Repeat thyroid function test in 1 month. Blood pressure was managed with beta-loni. Statin and fish oil continued. Lipid panel was stable. Seizure precaution maintained. Keppra continued. No evidence of seizure activity while in the hospital. Patient received 1 dose of Lasix due to acute on chronic diastolic congestive heart failure. Volumes and cardiorenal parameters were closely monitored. Pro BNP trended down to 3675. Creatinine increased to 1.7. Further diuresis was hold. Per teaching aide, continue current cardiovascular regimen and reassess need for diuretic therapy in the future. No plan for chronic diuretic therapy at this time. Patient will need to complete antibiotic at the assisted facility. Strict aspiration precautions maintained. IV steroids tapered and discontinued. Patient clinically stabilized and was ready for discharge to assisted facility for continuation of care. FINAL DIAGNOSES: COPD exacerbation Paroxysmal bronchospasm Probable pneumonia due to aspiration , healthcare acquired Acute on chronic diastolic congestive heart failure Acute on chronic renal failure, worsened with diuresis Diabetes mellitus Hypertension Paroxysmal atrial fibrillation, suppressed with amiodarone History of CVA with dementia and left hemiparesis Mild protein calorie malnutrition DISCHARGE MEDICATIONS: See Medication Reconciliation list. DISCHARGE INSTRUCTIONS: Patient was discharged to the assisted facility. Follow up with medical doctor at the facility. I have been assigned to dictate discharge summary for this account. I was not involved in the patient's management. Montse Shultz NP Jan 14, 2019 10:00
== END 2019-01-13 19:30 | DRG 177 ==
LOC: 4E 10:10
DX: J69.0 Pneumonitis due to inhalation of food and vomit (principal); I50.33 Acute on chronic diastolic (congestive) heart failure; J44.1 Chronic obstructive pulmonary disease with (acute) exacerbation; I13.0 Hypertensive heart and chronic kidney disease with heart failure and stage 1 through stage 4 chronic kidney disease, or unspecified chronic kidney disease; I69.354 Hemiplegia and hemiparesis following cerebral infarction affecting left non-dominant side; E44.1 Mild protein-calorie malnutrition; I11.0 Hypertensive heart disease with heart failure; Z87.891 Personal history of nicotine dependence; E11.22 Type 2 diabetes mellitus with diabetic chronic kidney disease; N18.9 Chronic kidney disease, unspecified; J98.01 Acute bronchospasm; I48.0 Paroxysmal atrial fibrillation; I69.318 Other symptoms and signs involving cognitive functions following cerebral infarction; Y95 Nosocomial condition; Z66 Do not resuscitate
CPT/HCPCS: 36415; 71045; 71046; 80048; 80053; 80061; 82550; 82553; 83735; 83880; 84439; 84443; 84481; 84484; 85007; 85025; 87070; 87081; 87205; 93005; 93970; 94640; 94664; J7620

== ENCOUNTER → 2019-11-20 | Outpatient (CLI) | payer MEDICARE, MEDICAID ==
--- NOTE | 2019-11-20 15:26 | Diagnostic Imaging Report ---
Indication: Right elbow swelling Technique: No IV contrast, per referring physician request. Noncontrast spiral acquisitions obtained through the right elbow Multiplanar reconstructions were generated. Total dose length product 300 ET tube mGycm. CTDIvol(s) above mGy. Radiation dose was minimized using automated exposure control Comparison: none Findings: 6 mm lucency in the distal lateral ulna is noted. There is mild edema of the subcutaneous fat of the posterior elbow. There is also some thinning of the subcutaneous fat posterior to the right humeral condyle. There is irregularity of the right humeral condyle. No acute fractures. No dislocations. No definite joint effusion The joint spaces are preserved. No definite focal fluid collections to suggest abscess are demonstrated. Note, however, that evaluation for such is limited in the absence of IV contrast. Impression: Mild edema of the dorsal subcutaneous fat, etiology/significance uncertain. No definite discrete fluid collection to suggest abscess, although evaluation for such is limited in the absence of IV contrast. Degenerative changes of the elbow joint. Lucency of the distal lateral humeral condyle most likely represents a degenerative subchondral cyst/geode. No acute bony trauma The CT scanner at [facility] is accredited by the [employer] and the scans are performed using protocols designed to limit radiation exposure to as low as reasonably achievable to attain images of sufficient resolution adequate for diagnostic evaluation.
== END | disposition home or self-care (01) ==
LOC: CAT 09:59
DX: R22.31 Localized swelling, mass and lump, right upper limb (principal); R60.0 Localized edema